=== PATIENT | male | born 1965 | race Caucasian/White ===

== ENCOUNTER → 2020-06-25 15:31 | Outpatient (BNVA) | payer SELFPAY | PROVIDERS: Visit Provider Emergency Medicine | DX: R10.9 Unspecified abdominal pain (principal); R11.0 Nausea | CPT/HCPCS: 80053; 81000; 83690; 85025 ==

== ENCOUNTER 2020-07-24 07:02 | Outpatient (CLI) | payer SELFPAY ==
--- NOTE | 2020-07-24 07:15 | US_ITS ---
WS: [id number] RIGHT UPPER QUADRANT ULTRASOUND HISTORY: R10.9 - Unspecified abdominal pain COMPARISON: None available. Liver: 17.3 cm in length. Moderately enlarged liver. Diffuse coarse echotexture. The entire liver is not imaged due to attenuation. No bile duct dilatation. Gallbladder: Normally distended gallbladder with no stones or wall thickening. CBD: 0.5 cm Pancreas: Not visualized. Right kidney: 12.6 cm in length. Normal size and echogenicity. No hydronephrosis or mass. Aorta and IVC: Poorly visualized. No ascites. US/US abdomen limited [id number] IMPRESSION: 1. Technically very limited evaluation of the RIGHT upper quadrant due to body habitus. 2. Moderate hepatomegaly and severe hepatic steatosis. 3. Negative gallbladder.
== END 2020-07-24 07:03 | disposition home or self-care (01) ==
LOC: US 07:04
PROVIDERS: Visit Provider Emergency Medicine
DX: R10.9 Unspecified abdominal pain (principal); R11.0 Nausea; R16.0 Hepatomegaly, not elsewhere classified; K76.0 Fatty (change of) liver, not elsewhere classified
CPT/HCPCS: 76705

== ENCOUNTER → 2021-11-17 14:14 | Outpatient (BNVA) | payer BC, MEDICAID, SELFPAY | PROVIDERS: Visit Provider Nurse Practitioner Family | DX: R10.11 Right upper quadrant pain (principal); R31.21 Asymptomatic microscopic hematuria; M54.50 Low back pain, unspecified | CPT/HCPCS: 80053; 81000 ==

== ENCOUNTER 2022-01-10 11:12 | Emergency (ER) | payer BC, MEDICAID, SELFPAY ==
--- NOTE | 2022-01-10 12:24 | USCV_ITS ---
Skip Mccray Age: 56 Gender: M : 1965 Exam Date: 01/10/2022 13:15 Ordering Phys: Dyllan Saeed MD Technologist: CT Exam Location: [facility]_ Indication: pain left PROCEDURES: Venous duplex imaging was performed in only the right lower extremity. On the right side, the common femoral, superficial femoral, profunda femoral, popliteal, posterior tibial, greater saphenous veins and the peroneal trunk were identified and interrogated in the standard fashion. These veins were found to be easily compressible with spontaneous blood flow. No evidence of insufficiency or thrombus noted. In addition, the posterior tibial and peroneal trunk were evaluated. . FINDINGS: normal us CONCLUSIONS No evidence of right lower extremity DVT. Willard Rosario MD (Electronically Signed) Final Date: 10 January 2022 14:12 S
[2022-01-10 13:09] VITALS: BP 163/108; PULSE 86; RESP 16; TEMP 36.2; O2SAT 98; BMI 47.1
[2022-01-10 14:21] VITALS: BP 162/124; PULSE 86; RESP 16; O2SAT 96
--- NOTE | 2022-01-10 14:50 | ED_ITS ---
HPI - Extremity Problem General: Chief complaint: Extremity Problem,Nontraumatic Stated complaint: leg/thigh pain Time Seen by Provider: 01/10/22 14:41 Source: patient Mode of arrival: ambulatory History of Present Illness: 56-year-old male presents emergency room with complaints of right thigh pain medial thigh pain extending into the perineum aching and burning pain. Has not had any swelling of his leg. He is concerned he may have a blood clot. He was seen yesterday in walk-in clinic and advised to follow-up with an ultrasound of his leg to rule out DVT. He has had problems with his back in the past he recently was doing some heavy lifting did not seem to bother him at the time but since then he has developed these issues. He has not had any chest pain or shortness of breath MD Complaint: extremity pain Onset (ago): day(s) Pain Consistency: constant Location: right and lower extremity Quality: sharp Radiation: none Relieving factors: nothing Exacerbating factors: nothing Associated symptoms: Deny arthralgias, chest pain, fever(s), myalgias, rash or short of breath Review of Systems Const: Denies: fever(s), chills, fatigue or malaise ENMT: Denies: throat pain, ear or mastoid pain, nasal discharge or nasal congestion Card: Denies: chest pain, palpitations, irregular heart rhythm or edema Resp: Denies: dyspnea, productive cough or non-productive cough GI: Denies: abdominal pain, nausea, vomiting, hematemesis, coffee ground emesis, diarrhea, constipation, bloating, hematochezia or melena : Denies: flank pain, dysuria, urinary frequency or urinary urgency Skin/Breast: Denies: rash PFSH ED PFSH: Medical History Chronic pain syndrome Nonalcoholic fatty liver disease Opioid dependence Social History Smoking and tobacco status: current every day smoker cigarettes and smokeless tobacco Second hand smoke exposure: No Alcohol intake: current Alcohol intake frequency: few times a week Desire information about alcohol rehabilitation?: No Desire information about substance/drug rehabilitation?: No Physical Exam Const: COMMON NORMALS: no acute distress GENERAL APPEARANCE: cooperative and comfortable ORIENTATION/CONSCIOUSNESS: Yes awake, Yes oriented to person, Yes oriented to place and Yes oriented to time HENMT: COMMON NORMALS: normocephalic, atraumatic and hearing grossly normal bilaterally HEAD & SCALP: normocephalic and atraumatic Resp: COMMON NORMALS: normal respiratory effort, No retractions, No use of accessory muscles and clear to auscultation bilaterally AUSCULTATION: clear to auscultation bilaterally Cardio: COMMON NORMALS: regular rate, regular rhythm and No murmurs present (Cardio) RATE: regular rate RHYTHM: regular rhythm Extremity: COMMON NORMALS: normal to inspection, capillary refill normal, no clubbing, cyanosis or edema, no calf tenderness and no pedal edema Neuro: SENSORIUM/ORIENTATION: Yes oriented to person, Yes oriented to place and Yes oriented to time DEEP TENDON REFLEXES: Right patellar reflex intensity grade: 1+ and Left patellar reflex intensity grade: 2+ OTHER: Mild weakness with dorsiflexion in the right foot plantar flexion 5/5. The left foot is 5 of 5 with plantar and dorsiflexion. Skin: COMMON NORMALS: no rashes or lesions noted GENERAL SKIN EXAM: no rashes or lesions noted Course Vital Signs: Vital signs: Vital Signs Temperature 97.2 F L 01/10/22 13:09 Pulse Rate 86 01/10/22 14:21 Respiratory Rate 16 01/10/22 14:21 Blood Pressure 162/124 01/10/22 14:21 Pulse Oximetry 96 01/10/22 14:21 Oxygen Delivery Me thod 01/10/22 14:21 MDM - Extremity (Nontraumatic) Medical Decision Making Neck the patient does have a lumbar nerve impingement likely at L2-3 level. Venous duplex was negative for DVT. Will discharge home on steroids muscle r elaxer and prednisone taper. Medical Records I reviewed the patient's medical records. Lab Data I reviewed the patient's lab results. Discharge Plan Discharge Patient Disposition: Home Clinical Impression: Lumbar nerve root impingement Condition: Stable Prescriptions: New pregabalin 75 mg capsule 75 mg PO BID Qty: 60 0RF tizanidine 4 mg tablet 4 mg PO Q6H PRN (Reason: muscle spasticity) Qty: 20 0RF Rx Instructions: do not exceed 3 doses per 24 hrs prednisone 20 mg tablet 20 mg PO TID Qty: 15 0RF Rx Instructions: 1 p.o. 3 times daily x3 days, 1 p.o. twice daily x2 days, 1 p.o. daily x2 days No Action hydrocodone-acetaminophen 5-325 mg tablet 1 tab PO Q4H PRN (Reason: pain) 3 Days Qty: 10 0RF Discharge Orders: Discharge ED (Routine); Ordered 01/10/22 Ordered By: Rey Grullon Patient Instructions: Opioid Safety, Pain Management Activity Restrictions/Additional Instructions: You were seen today for right leg pain. Based on your exam I suspect you have a L to III nerve root impingement. Follow-up with your primary care doctor. Use medications as above. Start prednisone taper tomorrow. Coding Level of Care Code ED Senior Field Service Engineer for Amie Barbosa
[2022-01-10 15:10] VITALS: BP 141/106; PULSE 88; RESP 16; TEMP 36.7; O2SAT 96
== END 2022-01-10 15:13 | disposition home or self-care (01) ==
PROVIDERS: Emergency Provider Family Medicine
DX: G54.4 Lumbosacral root disorders, not elsewhere classified (principal); F17.210 Nicotine dependence, cigarettes, uncomplicated
CPT/HCPCS: 93971; 99284

== ENCOUNTER 2022-01-17 06:58 | Outpatient (CLI) | payer BC, MEDICAID, SELFPAY ==
--- NOTE | 2022-01-17 07:15 | US_ITS ---
WS: [id number] Complete ABDOMINAL ULTRASOUND HISTORY: R10.11 - Right upper quadrant pain COMPARISON: 07/24/2020 Liver: 16.1 cm in length. Liver is mildly enlarged. Mild coarse echotexture. Difficult to evaluate th e entire liver due to hepatic steatosis and body habitus. No bile duct dilatation or mass identified. Portal Vein: Normal hepatopetal flow with monophasic waveform. Gallbladder: Normally distended with no gallstones, wall thickening or pericholecystic fluid. Gallbladder wall thickness: 0.4 cm. Pancreas: Poorly visualized due to body habitus. CBD: 0.5 cm. Right kidney: 13.2 cm x 7.5 cm x 7.0 cm. No mass, cortical thickening or hydronephrosis. There are t iny nonobstructing calcifications. Left kidney: 11.6 cm x 5.5 cm x 6.1 cm. No mass, cortical thickening or hydronephrosis. Spleen: Normal size and echogenicity. Abdominal aorta and IVC are within normal limits. No ascites. US/US abdomen complete* [id number] IMPRESSION: 1. Overall quality is limited by body habitus. 2. Normal gallbladder. 3. Mild hepatomegaly and changes of hepatic steatosis. Not significantly curran ed since 07/24/2020. 4. No renal obstruction or solid mass.
== END 2022-01-17 06:59 | disposition home or self-care (01) ==
LOC: RAD 06:59
PROVIDERS: Visit Provider Nurse Practitioner Family
DX: R10.11 Right upper quadrant pain (principal); R16.0 Hepatomegaly, not elsewhere classified
CPT/HCPCS: 76700

== ENCOUNTER → 2022-02-10 16:03 | Outpatient (BNVA) | payer BC, MEDICAID, SELFPAY | PROVIDERS: PCP Nurse Practitioner Family; Visit Provider Nurse Practitioner Family | DX: I10 Essential (primary) hypertension (principal) | CPT/HCPCS: 85025 ==

== ENCOUNTER → 2022-02-16 10:15 | Outpatient (BNVA) | payer BC, MEDICAID, SELFPAY | PROVIDERS: PCP Nurse Practitioner Family; Visit Provider Nurse Practitioner Family | DX: I10 Essential (primary) hypertension (principal) | CPT/HCPCS: 85025 ==

== ENCOUNTER 2022-08-22 11:00 | Outpatient (CLI) | payer BC, MEDICAID, SELFPAY | END 2022-08-22 11:01 | disposition home or self-care (01) | LOC: SLEEP 08-23 12:16 | PROVIDERS: PCP Nurse Practitioner Family; Visit Provider Anesthesiology Pain Medicine | DX: G47.33 Obstructive sleep apnea (adult) (pediatric) (principal); G47.36 Sleep related hypoventilation in conditions classified elsewhere | CPT/HCPCS: G0399 ==

== ENCOUNTER → 2023-01-10 14:39 | Outpatient (BNVA) | payer BC, MEDICAID, SELFPAY | PROVIDERS: PCP Family Medicine; Visit Provider Family Medicine | DX: I10 Essential (primary) hypertension (principal); Z13.220 Encounter for screening for lipoid disorders; Z13.6 Encounter for screening for cardiovascular disorders; R53.83 Other fatigue | CPT/HCPCS: 80053; 80061; 82607; 84403; 84443; 85025 ==

== ENCOUNTER → 2023-01-26 08:16 | Outpatient (BNVA) | payer BC, MEDICAID, SELFPAY | PROVIDERS: PCP Family Medicine; Referring Provider Family Medicine; Visit Provider Family Medicine | DX: E34.9 Endocrine disorder, unspecified (principal) | CPT/HCPCS: 84402; 84403 ==

== ENCOUNTER → 2023-02-14 09:45 | Outpatient (BNVA) | payer BC, MEDICAID, SELFPAY | PROVIDERS: PCP Family Medicine; Referring Provider Family Medicine; Visit Provider Family Medicine | DX: E34.9 Endocrine disorder, unspecified (principal); E29.1 Testicular hypofunction | CPT/HCPCS: 84402; 84403 ==

== ENCOUNTER → 2023-07-27 10:54 | Outpatient (BNVA) | payer BC, MEDICAID, SELFPAY | PROVIDERS: PCP Family Medicine; Visit Provider Family Medicine | DX: I10 Essential (primary) hypertension (principal); E34.9 Endocrine disorder, unspecified | CPT/HCPCS: 80053; 82977; 83690; 84402; 84403 ==

== ENCOUNTER 2023-08-22 15:12 | Outpatient (CLI) | payer BC, MEDICAID, SELFPAY ==
--- NOTE | 2023-08-22 15:30 | CT_ITS ---
WS: [id number] CT ABDOMEN WITH CONTRAST HISTORY: R10.9 - Unspecified abdominal pain Contiguous single phase 5 mm axial imaging performed to the abdomen. Oral contrast has been provided. Coronal and sagittal reformats are submitted. All CT scans at [facility] use at least one of these dose optimization techniques: automated exposure control; mA and/or kV adjustment per patient size (includes targeted exams where dose is matched to clinical indication); or iterative reconstruct ion. IV CONTRAST: Omnipaque 350; 100 mL IV. Oral contrast: No DLP: 922.89 mGy.cm COMPARISON: Ultrasound 01/17/2022 Lower thorax: Breathing motion artifact at the lung bases. Heart is normal size. No hiatal hernia. Liver/biliary system: Diffuse hepatic steatosis. No mass. No intrahepatic dilatation. Limited enhance ment of the portal vein but no thrombus identified. Gallbladder: Normal. No gallstones or wall thickening. No pericholecystic fluid. Pancreas: Normal size pancreas and pancreatic duct. No adjacent inflammation. Spleen: Normal size spleen. No mass or infarct. Adrenal glands: Normal. Right kidney: Normal. Left kidney: Normal. Aorta: Minimal atherosclerosis. No aneurysm. Limited opacification of the mesenteric arteries but no thrombus or occlusion identified. Lymphadenopathy: None. Free fluid: None. GI tract: Stomach is distended with fluid. No obstruction. No mass. Visualized small bowel and colon are negative for acute pathology. Abdominal wall: Small ventral abdominal wall hernia. Visualized osseous structures: Mild degenerative scoliosis lumbar spine. Vacuum disc phenomenon in th e lower lumbar spine. No fractures. Healed rib fracture in the posterior RIGHT 10th rib. CT/CT abdomen w con* [id number] IMPRESSION: 1. No acute abdominal abnormality is identified. 2. Negative gallbladder. 3. No bile duct dilatation. 4. No GI tract obstruction or inflammation identified within the included port ions of the abdomen CT. 5. Mild atherosclerosis aorta.
== END 2023-08-22 15:13 | disposition home or self-care (01) ==
LOC: RAD 15:13
PROVIDERS: PCP Family Medicine; Visit Provider Family Medicine
DX: R10.9 Unspecified abdominal pain (principal); K76.0 Fatty (change of) liver, not elsewhere classified; K46.9 Unspecified abdominal hernia without obstruction or gangrene
CPT/HCPCS: 74160; Q9967

== ENCOUNTER → 2024-05-15 10:53 | Outpatient (BNVA) | payer BC, MEDICAID, SELFPAY | PROVIDERS: PCP Family Medicine; Visit Provider Family Medicine | DX: I10 Essential (primary) hypertension (principal); E34.9 Endocrine disorder, unspecified; E29.1 Testicular hypofunction | CPT/HCPCS: 80053; 80061; 84402; 84403 ==

== ENCOUNTER 2024-06-04 07:10 | Emergency (ER) | payer BC, MEDICAID, SELFPAY ==
[2024-06-04 07:12] VITALS: BP 177/84; PULSE 83; RESP 20; TEMP 36.6; O2SAT 97
--- NOTE | 2024-06-04 07:26 | ED_ITS ---
HPI - Ear Problem General: Chief complaint: Ear Stated complaint: stroke like symptoms Time Seen by Provider: 06/04/24 07:26 History of Present Illness: 58-year-old male presents emergency room complaining of fullness in his right ear with some drainage. Has tried some [id number] hydroperoxide in the ear without significant relief he has some muffled hearing as well some mild otalgia. No fever sweats or chills he has not had any trauma to that ear no bloody discharge Associated symptoms: Denies fever(s) Related Data Home Medications ?Medication ?Instructions ?Recorded ?Confirmed hydrocodone 10 mg-acetaminophen 1 tab PO TID PRN pain 11/01/22 06/04/24 325 mg tablet Previous Rx's ?Medication ?Instructions ?Recorded ibuprofen 800 mg tablet 800 mg PO Q8H #60 tabs 10/29 losartan 25 mg tablet 25 mg PO DAILY 90 days #90 t abs 05/15/24 testosterone 1 pump topical DAILY #75 gra ms 05/15/24 amoxicillin 875 mg-potassium 1 tab PO BID #20 tabs 10/21 clavulanate 125 mg tablet ciprofloxacin 0.3 %-dexamethasone 4 drp otic (ear) BID 7 days #7.5 mL 06/04/24 0.1 % ear drops,suspension Allergies Allergy/AdvReac Type Severity Reaction Status Date / Time Sulfa (Sulfonamide Allergy Unknown Verified 05/15/24 10:30 Antibiotics) Review of Systems Const: Denies: fever(s) or chills Card: Denies: chest pain Resp: Denies: dyspnea [facility] ED PFSH: Medical History Degenerative disc disease Opioid dependence Chronic pain syndrome Nonalcoholic fatty liver disease Family History Other Adopted Denies family history of Bleeding disorder Social History Smoking and tobacco/nicotine status: current some day tobacco/nicotine user cigarettes and smokeless tobacco Second hand smoke exposure: No Alcohol intake: current Alcohol intake frequency: holidays/special occasions only Alcohol type: beer Substance/Drug Use: never Physical Exam Const: COMMON NORMALS: no acute distress GENERAL APPEARANCE: cooperative and comfortable ORIENTATION/CONSCIOUSNESS: Yes awake, Yes oriented to person, Yes oriented to place and Yes oriented to time HENMT: COMMON NORMALS: normocephalic, atraumatic, hearing grossly normal bilaterally, external ears normal and Normal nasal mucous membranes and turbinates present HEAD & SCALP: normocephalic and atraumatic NOSE: Normal nasal mucous membranes and turbinates present EXTERNAL EAR: Yes external ears normal EXTERNAL AUDITORY CANAL: Abnormal EAC present EAC laterality: right Details: erythema, edema and EAC tenderness TYMPANIC MEMBRANE: TM normal on the left and TM abnormal TM laterality: right Details: bulging, erythematous and fluid behind TM Resp: COMMON NORMALS: normal respiratory effort, No retractions, No use of accessory muscles and clear to auscultation bilaterally AUSCULTATION: clear to auscultation bilaterally Cardio: COMMON NORMALS: regular rate, regular rhythm and No murmurs present (Cardio) RATE: regular rate RHYTHM: regular rhythm Neuro: SENSORIUM/ORIENTATION: Yes oriented to person, Yes oriented to place and Yes oriented to time Skin: COMMON NORMALS: no rashes or lesions noted GENERAL SKIN EXAM: no rashes or lesions noted Course Vital Signs: Vital signs: Vital Signs Temperature 97.8 F 06/04/24 07:12 Pulse Rate 78 06/04/24 07:49 Respiratory Rate 20 H 06/04/24 07:12 Blood Pressure 170/84 06/04/24 07:49 Pulse Oximetry 98 06/04/24 07:49 MDM - Ear Medical Decision Making Reviewed findings from exam with patient we will start him on Ciprodex drops as well as amoxicillin 875 twice daily for 10 days follow-up with primary care return if he has further problems. If he continues to have muffled hearing he should follow-up with his primary care doctor. No radiology studies performed this visit Discharge Plan Discharge Patient Disposition: Home Clinical Impression: Otitis externa, Otitis media Condition: Stable Prescriptions: New amoxicillin-pot clavulanate 875-125 mg tablet 1 tab PO BID Qty: 20 0RF ciprofloxacin-dexamethasone 0.3-0.1 % drops,suspension 4 drp otic (ear) BID 7 Days Qty: 7.5 0RF No Action hydrocodone-acetaminophen 10-325 mg tablet 1 tab PO TID PRN (Reason: pain) ibuprofen 800 mg tablet 800 mg PO Q8H Qty: 60 0RF losartan 25 mg tablet 25 mg PO DAILY 90 Days Qty: 90 3RF testosterone 20.25 mg/1.25 gram (1.62 %) gel in metered-dose pump 1 pump topical DAILY Qty: 75 3RF Rx Instructions: apply 1 pump amount over max area of ONE upper arm and shoulder Discharge Orders: Discharge ED (Routine); Ordered 06/04/24 Ordered By: Rey Grullon Referrals: Lyubov Diaz MD [Primary Care Provider] - Discharge Diet: Usual diet Discharge Activity: Resume usual activity Patient Instructions: Otitis Externa - Adult, Otitis Media - Adult, Opioid Safety, Pain Management Activity Restrictions/Additional Instructions: Thank you for choosing [facility] for your healthcare needs today. It is very important that you follow up as instructed or that you return to the Emergency Department should you have concerns or if your condition changes or worsens in any way. Print Language: Gibraltarian Coding Level of Care Code ED Sharepoint Administrator for Amie Barbosa
[2024-06-04 07:49] VITALS: BP 170/84; PULSE 78; O2SAT 98
== END 2024-06-04 07:51 | disposition home or self-care (01) ==
PROVIDERS: Emergency Provider Family Medicine; PCP Family Medicine
DX: H60.91 Unspecified otitis externa, right ear (principal); H66.91 Otitis media, unspecified, right ear; F17.210 Nicotine dependence, cigarettes, uncomplicated; F17.220 Nicotine dependence, chewing tobacco, uncomplicated
CPT/HCPCS: 99283

== ENCOUNTER 2024-08-18 14:11 | Emergency (ER) | payer BC, MEDICAID, SELFPAY ==
[2024-08-18 14:26] VITALS: BP 150/84; PULSE 80; RESP 16; TEMP 36.4; O2SAT 95; BMI 48.6
--- NOTE | 2024-08-18 15:06 | XRR_ITS ---
PROCEDURE INFORMATION: Exam: XR Right Humerus Exam date and time: 08/18/2024 3:28 PM Age: 59 years old Clinical indication: Right; RT upper arm/shoulder pain after lifting injury; PT was lifitng an air conditioner when he had sudden extreme pain and felt a pop; Now has limited rom and tight bicep ball shaped formation that is mobile under skin TECHNIQUE: Imaging protocol: Radiologic exam of the right humerus. Views: 2 or more views. COMPARISON: No relevant prior studies available. FINDINGS: Bones/joints: No acute fracture or dislocation. Mineralization is normal. Mild acromioclavicular joint arthropathy. Soft tissues: Unremarkable. XR/[place] [id number] IMPRESSION: No acute fracture or dislocation.
--- NOTE | 2024-08-18 15:14 | ED_ITS ---
HPI - Extremity Problem General: Chief complaint: Extremity Injury, Upper Stated complaint: R arm pain Time Seen by Provider: 08/18/24 15:09 History of Present Illness: 59-year-old male reports that he was lif ting an air conditioner when he got about [facility] he felt a tearing sensation in his arm and now his he has a bulge in his upper arm where his bicep is at. Related Data Home Medications ?Medication ?Instructions ?Recorded ?Confirmed hydrocodone 10 mg-acetaminophen 1 tab PO TID PRN pain 11/01/22 06/06/24 325 mg tablet Previous Rx's ?Medication ?Instructions ?Recorded ibuprofen 800 mg tablet 800 mg PO Q8H #60 tabs 10/29 losartan 25 mg tablet 25 mg PO DAILY 90 days #90 t abs 05/15/24 testosterone 1 pump topical DAILY #75 gra ms 05/15/24 ofloxacin 0.3 % eye drops 1 drp ophthalmic (eye) TID # 5 mL 07/04/24 Allergies Allergy/AdvReac Type Severity Reaction Status Date / Time Sulfa (Sulfonamide Allergy Unknown Verified 07/04/24 15:30 Antibiotics) Review of Systems Musc: Reports: other (Please see HPI) PFSH ED PFSH: Medical History Degenerative disc disease Opioid dependence Chronic pain syndrome Nonalcoholic fatty liver disease Family History Other Adopted Denies family history of Bleeding disorder Social History Smoking and tobacco/nicotine status: never used tobacco/nicotine Second hand smoke exposure: No Alcohol intake: current Alcohol intake frequency: holidays/special occasions only Alcohol type: beer Substance/Drug Use: never Physical Exam Const: COMMON NORMALS: no acute distress, patient oriented x3 and alert Resp: COMMON NORMALS: normal respiratory effort and clear to auscultation bilaterally AUSCULTATION: clear to auscultation bilaterally Cardio: COMMON NORMALS: regular rate and regular rhythm RATE: regular rate RHYTHM: regular rhythm GI: COMMON NORMALS: Soft to palpation and non-tender PALPATION: Yes Soft to palpation Extremity: NARRATIVE EXTREMITY EXAM: Right upper arm with mid upper arm bulge consistent with distal bicep tendon rupture Neuro: COMMON NORMALS: patient oriented x3 SENSORIUM/ORIENTATION: Yes alert Psych: COMMON NORMALS: mental status grossly normal, Normal thought process present and cooperative THOUGHT PROCESS: Normal thought process present Skin: COMMON NORMALS: no rashes or lesions noted and turgor normal GENERAL SKIN EXAM: no rashes or lesions noted and turgor normal Course Vital Signs: Vital signs: Vital Signs Temperature 97.5 F L 08/18/24 14:26 Pulse Rate 78 08/18/24 16:34 Respiratory Rate 16 08/18/24 14:26 Blood Pressure 126/81 08/18/24 16:34 Pulse Oximetry 99 08/18/24 16:34 Oxygen Delivery Me thod Room Air 08/18/24 14:26 MDM - Extremity (Nontraumatic) Medical Decision Making Patient x-rays were reviewed and shows no acute findings. Patient's physical exam is consistent with a likely distal bicep tendinitis rupture. Patient will be referred to Ortho for definitive evaluation and treatment. Patient was placed in a sling prior to discharge. Lab Data Radiology Impressions Humerus X-Ray 08/18/24 15:06 IMPRESSION: No acute fracture or dislocation. XR interpretation done by ED provider, pending radiology final review ED provider radiology interpretation(s): No acute finding noted Discharge Plan Discharge Patient Disposition: Home Clinical Impression: Biceps tendon rupture Condition: Stable Prescriptions: No Action hydrocodone-acetaminophen 10-325 mg tablet 1 tab PO TID PRN (Reason: pain) ibuprofen 800 mg tablet 800 mg PO Q8H Qty: 60 0RF losartan 25 mg tablet 25 mg PO DAILY 90 Days Qty: 90 3RF testosterone 20.25 mg/1.25 gram (1.62 %) gel in metered-dose pump 1 pump topical DAILY Qty: 75 3RF Rx Instructions: apply 1 pump amount over max area of ONE upper arm and shoulder ofloxacin 0.3 % drops 1 drp ophthalmic (eye) TID Qty: 5 0RF Discharge Orders: Discharge ED (Routine); Ordered 08/18/24 Ordered By: Jayson Salas Referrals: Lyubov Diaz MD [Primary Care Provider, Family Practice] Discharge Diet: Usual diet Discharge Activity: Increase activity as tolerated Patient Instructions: Biceps Tendon Rupture, Opioid Safety, Pain Management Activity Restrictions/Additional Instructions: Your symptom is concerning for bicep tendon rupture. I have placed that referral for you to medical front desk specialist. Please limit lifting and wear sling for support. You may use Tylenol and ibuprofen for discomfort as needed. Ice to affected area as needed Print Language: Thai Coding Level of Care Code ED Rough Rice Grader for Amie Barbosa
[2024-08-18] MEDS: ketorolac 30 mg/mL INJ 15 MG IM (15:30)
[2024-08-18 16:34] VITALS: BP 126/81; PULSE 78; O2SAT 99
--- NOTE | 2024-08-19 09:24 | DCPLANNER ---
Message sent to Ortho for follow up-Patient x-rays were reviewed and shows no acute findings. Patient's physical exam is consistent with a likely distal bicep tendinitis rupture. Patient will be referred to Ortho for definitive evaluation and treatment. Patient was placed in a sling prior to discharge.
== END 2024-08-18 16:35 | disposition home or self-care (01) ==
PROVIDERS: Emergency Provider Student in an Organized Health Care Education/Training Program; PCP Family Medicine
DX: S46.211A Strain of muscle, fascia and tendon of other parts of biceps, right arm, initial encounter (principal); X58.XXXA Exposure to other specified factors, initial encounter
CPT/HCPCS: 73060; 96372; 99284; A4565; J1885

== ENCOUNTER → 2024-08-20 14:33 | Outpatient (BNVA) | payer BC, MEDICAID, SELFPAY | PROVIDERS: PCP Family Medicine; Visit Provider Orthopaedic Surgery | DX: S46.211A Strain of muscle, fascia and tendon of other parts of biceps, right arm, initial encounter (principal); X58.XXXA Exposure to other specified factors, initial encounter | CPT/HCPCS: 73060 ==

== ENCOUNTER 2024-08-22 14:06 | Outpatient (CLI) | payer BC, MEDICAID, SELFPAY ==
--- NOTE | 2024-08-22 14:30 | MR_ITS ---
WS: [id number] EXAMINATION: MR elbow RT wo con* [id number] ORDER DATE: 08/22/2024 2:12 PM COMPARISON: None. HISTORY: S46.219A - Strain of muscle, fascia and tendon of other p... CONTRAST: None.None. TECHNIQUE: Axial T1, axial T2 fat sat, coronal T1, coronal proton density fat sat, coronal STIR, sagittal proton density fat sat, and axial fat sat 3D performed. FINDINGS: High-grade complete tear of the distal biceps tendon. Complete tear from the insertion at the radial tuberosity. Biceps tendon is retracted above the level of the elbow joint. Associated fluid and edema along the biceps tendon sheath. Associated hematoma involving the biceps brachii muscle and myotendinous junction. No visualized radial avulsion fractures. No residual visualized intact tendon. Normal bone marrow signal in the radial head. Annular ligament appears intact. Normal bone marrow signal in the olecranon and coronoid process. Normal bone marrow signal in the distal humerus. MR/MR elbow RT wo con* [id number] IMPRESSION: 1. High-grade complete tear of the biceps tendon from the radial tuberosity in sertion. Biceps tendon is retracted above the level of the elbow joint. 2. No residual intact tendon. 3. Fluid and edema along the biceps tendon sheath with hematoma and edema visu alized in the biceps brachii muscle and myotendinous junction
== END 2024-08-22 14:07 | disposition home or self-care (01) ==
LOC: RAD 14:07
PROVIDERS: PCP Family Medicine; Visit Provider Orthopaedic Surgery
DX: S46.211A Strain of muscle, fascia and tendon of other parts of biceps, right arm, initial encounter (principal); X58.XXXA Exposure to other specified factors, initial encounter
CPT/HCPCS: 73221

== ENCOUNTER → 2024-08-23 10:25 | Outpatient (BNVA) | payer BC, MEDICAID, SELFPAY | PROVIDERS: PCP Family Medicine; Visit Provider Orthopaedic Surgery | DX: S46.211A Strain of muscle, fascia and tendon of other parts of biceps, right arm, initial encounter (principal); Z01.818 Encounter for other preprocedural examination; X58.XXXA Exposure to other specified factors, initial encounter | CPT/HCPCS: 36415; 80053; 81001; 83036; 85025 ==

== ENCOUNTER 2024-08-26 07:57 | Day surgery (SDC) | payer BC, MEDICAID, SELFPAY ==
[2024-08-26] VITALS (20 sets, daily range): BP systolic 94–163; BP diastolic 66–99; PULSE 70–93; RESP 16–20; TEMP 36.1–36.4; O2SAT 90–98; BMI 48.6
[2024-08-26] MEDS: sodium chloride 0.9% 1,000 ML 30 ML IV (08:40)
--- NOTE | 2024-08-26 09:34 | W.PM.OPSUD ---
Surgery/Procedure H&P Update DATE OF PROCEDURE: August 26, 2024 DATE H&P PERFORMED: 08/23/24 H&P UPDATE INFORMATION: I have reviewed H&P completed within last 30 days, I have examined patient prior to procedure and No changes to prior documentation PREOP DIAGNOSIS: Right bicep tear distally PLANNED PROCEDURE: Operation Date: 08/26/24 09:25 Proposed Procedures p Bicep Tenodesis Tendon Repair Bicep(Right) - Rm Alejandra DO
--- NOTE | 2024-08-26 09:35 | ANES.PREANE2 ---
Pre-Anesthetic Assessment Height/Weight: Height 5 ft 8 in Weight 320 lb Temp Pulse Resp BP Pulse Ox O2 Del Method 97 F L 86 18 158/92 96 Room Air 08/26/24 08:26 08/26/24 08:26 08/26/24 08:26 08/26/24 08:26 08/26/24 08:26 08/26/24 08:26 Preop Diagnosis: Right bicep tear distally Operation Date: 08/26/24 09:25 Proposed Procedures p Bicep Tenodesis Tendon Repair Bicep(Right) - Rm Alejandra, DO Was Beta Augustine taken within 24 hours: N/A Was Clonidine taken within 24 hours: N/A Last intake: Intake Last Liquid Date 08/25/24 Last Liquid Time 22:00 Last Solid Date 08/25/24 Last Solid Time 21:00 Social Tobacco and No tobacco Exam alert, oriented x 3 and regular rate & rhythm Airway Submandibular: within normal limits Mallampati: Class III Dentition: full Anesthetic Plan ASA status: 3 Anesthesia: General and Regional (specify below) Other: No prior issues with anesthesia NPO since yesterday evening History of JOHN, no treatment Chronic smoker Chronic pain, on chronic [place] 3?4 daily Denies any hypertension, preop BP 158/92 Patient states that he is able to walk 1-2 blocks at a time but does note mild shortness of breath No home oxygen Plan for preop nerve block with general anesthesia Medications/Allergies Home Medications ?Medication ?Instructions ?Recorded ?Confirmed ?Last Taken ?Type hydrocodone 10 mg-acetaminophen 1 tab PO TID PRN pain 11/01/22 08/26/24 08/25/24 History 325 mg tablet testosterone 1 pump topical DAILY #75 grams 05/15/24 08/26/24 08/26/24 Rx cholecalciferol (vitamin D3) 125 125 mcg PO DAILY 08/26/24 08/26/24 08/25/24 History mcg (5,000 unit) tablet (Vitamin D3) coenzyme Q10 400 mg capsule (Co 400 mg PO DAILY 08/26/24 08/26/24 08/25/24 History Q-10) garlic 1,000 mg capsule 1,000 mg PO DAILY 08/26/24 08/26/24 08/25/24 History soybean, fermented 50 mg capsule 50 mg PO DAILY 08/26/24 08/26/24 08/25/24 History (Nattokinase) Allergies Allergy/AdvReac Type Severity Reaction Status Date / Time Sulfa (Sulfonamide Allergy Severe anaphylacti Verified 08/26/24 08:18 Antibiotics) c Current Medications Generic Name Dose Route Start Last Admin Trade Name Cornelq PRN Reason Stop Dose Admin Sodium Chloride 1,000 mls @ 30 mls/hr 08/26/24 08:00 08/26/24 08:40 Sodium Chloride 0.9% IV 08/27/24 07:59 30 mls/hr .Q24H JOSE Administration PFSH Anesthesia Medical History Degenerative disc disease Opioid dependence Chronic pain syndrome Nonalcoholic fatty liver disease Family History Other Adopted Denies family history of Bleeding disorder Social History Smoking and tobacco/nicotine status: current every day tobacco/nicotine user cigarettes and smokeless tobacco Second hand smoke exposure: No Alcohol intake: current Alcohol intake frequency: holidays/special occasions only Alcohol type: beer Substance/Drug Use: never
--- NOTE | 2024-08-26 09:39 | ANES.PROC ---
Anesthesia Procedures Procedure/Date: 08/26/24 Nerve Block ^: Nerve Block 1: Main Anesthesia: other Time Out Performed: Yes Consent: requested by attending/covering physician and from patient Nerve block location: interscalene Anesthesia monitors applied: pulse oximetry, EKG, BP cuff and oxygen Nerve block position: supine Anesthetic Used: ropivicaine 0.5% Amount of anesthesia used (mL): 30 Ultrasound used to: recognize landmarks Nerve Stimulator Used?: Yes Interscalene/Femoral BLK: other needle (pjunk 4inch) Injection: neg aspiration of heme Patient Tolerated Procedure: well Complications: none Additional Comments: decadron 4mg added to block
[2024-08-26] MEDS: ceFAZolin 3,000 MG in sodium chloride 0.9% (plus) 100 ML 200 MG IV (09:42)
[2024-08-26] MEDS: vancomycin 1,000 MG SDV 1000 MG XX (10:45)
--- NOTE | 2024-08-26 10:50 | XR_ITS ---
WS: [id number] XR elbow RT 2V [id number] REASON FOR EXAM: OR, bicep tendesis FINDINGS: Small soft tissue anchor overlying the margin of the biceps tendon on the radius. XR/XR elbow RT 2V [id number] IMPRESSION: Biceps tendon repair as above.
--- NOTE | 2024-08-26 11:03 | PM.OP ---
Operative Report Date of procedure: August 26, 2024 Pre-op diagnosis: Right distal bicep tear Post-op diagnosis: same Procedure done: Repair of right distal bicep Surgeon: Rm Alejandra DO Estimated blood loss (mL): 25 Procedure: Repair of right distal bicep Patient was brought to the operative suite after undergoing anesthesia was placed in the supine position. All areas impingement were well-padded. Patient was prepped and draped normal sterile fashion. Skin incision was made over the volar arm. The bicep tendon was identified. The edges were trimmed. A whipstitch was then passed through the bicep tendon. Next dissection was made down to the radial tuberosity. A guidepin was inserted first. This was then overreamed with a 8 mm reamer. On the near cortex. The suture from the whipstitch to the bicep tendon were passed through a button. The button was then passed through the radial tuberosity. And then using the tension of the sutures the bicep tendon was then brought down into the tuberosity hole. A suture was then passed through the bicep tendon and locked into position. And then a interference screw was then placed into the hole where the bicep tendon was passed. Range of motion patient had full range of motion. Wounds were then irrigated closed with Vicryl and Monocryl suture. Sterile dressings were applied patient was placed in a posterior splint and transferred to the PACU in stable condition.
[2024-08-26] MEDS: fentaNYL 50 mcg/mL INJ 2mL IVP ×2 (11:34→11:39)
[2024-08-26] MEDS: HYDROmorphone 1 mg/mL INJ 1ml 0.5 MG IVP (11:51)
[2024-08-26] MEDS: midazolam 1 mg/mL INJ 2 mL 2 MG IVP (12:00)
--- NOTE | 2024-08-26 13:45 | ANE.PACU2 ---
Inpatient post-anesthesia follow up: Airway intact: Yes Vital signs: Temperature 97.6 F Pulse Rate 77 Respiratory Rate 18 Blood Pressure 149/73 Pulse Oximetry 94 Oxygen Delivery Me thod Room Air Oxygen Flow Rate 2 Fraction of Inspir ed Oxygen Hydration adequate: Yes Nausea and vomiting: No Pain level: 2 Mental status: Baseline
== END 2024-08-26 13:45 | disposition home or self-care (01) ==
PROVIDERS: PCP Family Medicine; Visit Provider Orthopaedic Surgery
PROC: (CPT 23430; principal; 2024-08-26 09:15)
DX: S46.221A Laceration of muscle, fascia and tendon of other parts of biceps, right arm, initial encounter (principal); X58.XXXA Exposure to other specified factors, initial encounter; G47.33 Obstructive sleep apnea (adult) (pediatric); F17.210 Nicotine dependence, cigarettes, uncomplicated; F17.220 Nicotine dependence, chewing tobacco, uncomplicated
CPT/HCPCS: 24342; 73070; 76000; C1713; J0330; J0690; J1100; J1171; J2250; J2405; J2704; J3010; J3370; J3490; J7030; J9999

== ENCOUNTER 2024-09-08 16:08 | Inpatient (IN) | payer BC, SELFPAY ==
[2024-09-08] VITALS (9 sets, daily range): BP systolic 101–148; BP diastolic 56–86; PULSE 89–104; RESP 16–19; TEMP 37.2; O2SAT 94–98; BMI 48.6
--- OUTSIDE RECORDS SUMMARY | 2024-09-08 16:11 | XMS_ITS | Clinical Summary ---
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
--- OUTSIDE RECORDS SUMMARY | 2024-09-08 16:11 | XMS_ITS | Patient Health Record ---
Author Organization [facility] Address [address] [place], [place] [id number] Care Team Providers Care Interpreter Name Role Phone Lyubov Diaz MD Primary Care Provider Unavail able Mario FU, Phill Unavailable [phone] Rojelio PASTEURIZER-C, Agustina Unavailable Unavailable Nan Lyle Unavailable [phone] Allergies Allergen (clinical drug ingredient) Drug/Non Drug Allergy documented on EMR Reaction Allergy Type Onset Date Status Bee venom bee venom (uncoded) Unknown Allergy Active sulfa (uncoded) Unknown Allergy Acti ve Reason For Referral No Information Medications Medication SIG (Take, Route, Frequency, Duration) Notes Start Date End Date Status acetaminophen-hydrocod one 325 mg-10 mg 1 tab orally Q4-6H prn pain (max 3/day; hold within 4H of planned sleep) for 28 days Do not fill prior to 07/23/24. ICD-10: G89.29 06/05/2024 Active acetaminophen-hydrocod one 325 mg-10 mg 1 tab orally Q4-6H prn pain (max 3/day; hold within 4H of planned sleep) for 28 days Do not fill prior to 06/25/24. ICD-10: G89.29 06/05/2024 Active Narcan 4 mg/0.1 mL as directed intranasally once 05/12/2022 Active testosterone 25 mg/2.5 g (1%) 1 PKT(S) transdermally once a day (in the morning) for 30 day(s) Active acetaminophen-hydrocod one 325 mg-10 mg 1 tab orally Q4-6H prn pain (max 3/day; hold within 4H of planned sleep) for 28 days Do not fill prior to 08/20/24. ICD-10: G89.29 06/05/2024 Active ibuprofen 800 mg 1 tab po orally prn pain Active losartan 25 mg 1 tab(s) orally once a day for 30 day(s) 04/05/2023 Active Social History Tobacco Use: Social History Observation Description Date Details (start date - stop date) Current Smoker NA - NA Tobacco use: Question Answer Notes : current smoker Are you interested in quitting? Ready to quit How many cigarettes a day do you smoke? 5 or les s How often do you smoke cigarettes? some days, bu t not every day How soon after you wake up d o you smoke your first cigarette? after 60 min When did you start smoking? 1987 AUDIT-C (Standard) Question Answer Notes Did you have a drink containing alcohol in the p ast year? No Points 0 Interpretation Negative Problems Problem Type SNOMED Code ICD Code Onset Dates Problem Status W/U Status Risk Notes Problem Solitary sacroiliitis (675023451) Sacroiliitis, not elsewhere classified (M46.1) Active confirmed Problem Lumbosacral spondylosis without myelopathy (60177491) Spondylosis without myelopathy or radiculopathy, lumbar region (M47.816) Active confirmed Problem High risk drug monitoring status (367685160) assisted (current) use of opiate analgesic (Z79.891) Active confirmed Problem Hypersomnia (74696571) Hypersomnia, unspecified (G47.10) Active confirmed Problem Obstructive sleep apnea syndrome (disorder) (79393838) Obstructive sleep apnea (adult) (pediatric) (G47.33) Active confirmed Problem Sleep disorder (97949867) Other sleep disorders (G47.8) Active confirmed Problem Chronic pain (88761061) Other chronic pain (G89.29) Active confirmed Problem Thoracic spondylosis without myelopathy (635824553) Spondylosis without myelopathy or radiculopathy, thoracic region (M47.814) Active confirmed Problem Degeneration of lumbar intervertebral disc (30482345) Other intervertebral disc degeneration, lumbar region (M51.36) Active confirmed Problem Pain in thoracic spine (283624975) Pain in thoracic spine (M54.6) Active confirmed Problem Long-term current use of drug therapy (790732389) Other mcc (current) drug therapy (Z79.899) Active confirmed Problem Spinal stenosis of lumbar region (50246434) Spinal stenosis, lumbar region without neurogenic claudication (M48.061) Active confirmed Problem Pain in lumbar spine (706542347) Vertebrogenic low back pain (M54.51) Active confirmed Vital Signs Temperature 97.3 degrees Fahrenheit 06/05/2024 Oximetry 97 % 06/05/2024 Blood pressure diastolic 75 mm Hg 06/05/2024 Height 68.5 in 06/05/2024 Blood pressure systolic 121 mm Hg 06/05/2024 Weight 320 lbs 06/05/2024 BMI 47.94 kg/m2 06/05/2024 Encounters Encounter Location Date Provider [facility] [address] [place], [place] [id number] 10/11/2023 Nan Feliciano Vertebrogenic low ba ck pain M54.51 ; Other chronic pain G89.29 and Obstructive sleep apnea (adult) (pediatric) G47.33 [facility] [address] [place], [place] [id number] 12/14/2023 Phill Huangbebe Vertebrogenic low ba ck pain M54.51 ; Other chronic pain G89.29 and Obstructive sleep apnea (adult) (pediatric) G47.33 [facility] [address] [place], [place] [id number] 02/07/2024 Phill Huangbebe Vertebrogenic low ba ck pain M54.51 ; Other chronic pain G89.29 and Obstructive sleep apnea (adult) (pediatric) G47.33 [facility] [address] [place], [place] [id number] 04/25/2024 Phill Huangbebe Vertebrogenic low ba ck pain M54.51 ; Other chronic pain G89.29 and Obstructive sleep apnea (adult) (pediatric) G47.33 [facility] [address] [place], [place] [id number] 06/05/2024 Phill Salbebe Vertebrogenic low ba ck pain M54.51 ; Other chronic pain G89.29 and Obstructive sleep apnea (adult) (pediatric) G47.33 Assessments Encounter Date Diagnosis (ICD Code) Assessment Notes Treatment Notes Treatment Clinical Notes Section Notes 10/11/2023 Vertebrogenic low back pain (ICD-10 - M54.51) Chronic axial lumbosacral spine pain. 12/14/2023 Other chronic pain (ICD-10 - G89.29) Patient reports that taking his pain medication has allowed him to climb ladders and continue painting. Plan to continue oral opioid medication management. 12/14/2023 Vertebrogenic low back pain (ICD-10 - M54.51) Chronic axial lumbosacral spine pain. 02/07/2024 Vertebrogenic low back pain (ICD-10 - M54.51) Chronic axial lumbosacral spine pain. 04/25/2024 Vertebrogenic low back pain (ICD-10 - M54.51) Chronic axial lumbosacral spine pain. 06/05/2024 Vertebrogenic low back pain (ICD-10 - M54.51) Chronic axial lumbosacral spine pain. 04/25/2024 Other chronic pain (ICD-10 - G89.29) Patient reports that taking his pain medication allows him to continue working. Plan to continue oral opioid medication management. 06/05/2024 Other chronic pain (ICD-10 - G89.29) Patient reports that taking his pain medication allows him to continue working. Plan to continue oral opioid medication management. 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 Plan to continue oral opioid medication management. 12/14/2023 Obstructive sleep apnea (adult) (pediatric) (ICD-10 - G47.33) Patient reports he normally has consistent nightly use of his APAP device. However, he is waiting for a mask replacement at this time. 10/11/2023 Obstructive sleep apnea (adult) (pediatric) (ICD-10 - G47.33) Patient reports he normally has consistent nightly use of his APAP device. However, a piece is broken on his machine right now and he has a tooth ache. Both to soon be resolved per patient report. 10/11/2023 Other chronic pain (ICD-10 - G89.29) Patient reports that taking his pain medication has allowed him to do yard work. Plan to continue oral opioid medication management. 02/07/2024 Obstructive sleep apnea (adult) (pediatric) (ICD-10 - G47.33) Patient reports he is still waiting for the right mask and supplies to resume use of his APAP device. 04/25/2024 Obstructive sleep apnea (adult) (pediatric) (ICD-10 - G47.33) Patient reports he is still waiting for the right mask and supplies to resume use of his APAP device. Plan to continue to restrict opioid use in relation to sleep for safety concerns. 06/05/2024 Obstructive sleep apnea (adult) (pediatric) (ICD-10 - G47.33) Patient reports he is currently not using his APAP device. Plan to continue to restrict opioid use in relation to sleep for safety concerns. 12/14/2023 Other The service was provided by PURNIMA Rodriguez, as part of the ongoing care plan established by Phill Martin MD, who was present in the office for direct supervision during the encounter. 06/05/2024 Other The service was provided by PURNIMA Rodriguez, as part of the ongoing care plan established by Phill Martin MD, who was present in the office for direct supervision during the encounter. Patient was provided with a letter at today's visit informing patient that this clinic is closing due to Dr. Martin's chcf; see scanned document. Terminal prescriptions were given to the patient along with tapering instructions. 02/07/2024 Other The service was provided by PURNIMA Rodriguez, as part of the ongoing care plan established by Phill Martin MD, who was present in the office for direct supervision during the encounter. 04/25/2024 Other The service was provided by PURNIMA Rodriguez, as part of the ongoing care plan established by Phill Martin MD, who was present in the office for direct supervision during the encounter. 10/11/2023 Other Plan Of Treatment No Information Insurance Providers Payer Name Payer Address Payer Phone Subscriber Number Group Number Insured Name Patient Relationship to Insured Coverage Start Date Coverage End Date [employer] [address] [address] [place] [id number] Skip Mccray Self - patient is the insured Medical (General) History Medical History History ICD Code Chronic pain Low back pain Lumbar spondylosis and spinal stenosis Sacroiliitis Mid back pain Thoracic spondylosis Degenerative disc disease Radiculopathy Opioid depdendence (2013) as per externa l medical records review Non-alcoholic fatty liver disease Right upper quadrant pain Hypertension Prior thoracic compression f racture (not supported by more recent thoracic plain films report) Tobacco use, possible COPD Sleep disorder Sleep apnea Obesity, morbid Surgical History Surgery Date(Month/Year) Appendectomy
[2024-09-08 17:02] LABS: Hematocrit 40.0 % (37-53); Hemoglobin 13.10 g/dL (11.27-16.99); Mean Corpuscular HGB Conc 32.8 g/dL (30-55); Mean Corpuscular Hemoglobin 29.1 pg (27-33); Mean Corpuscular Volume 88.9 fl (82-101); Nucleated Red Blood Cells % 0 %; Platelet Count 250 10^3/cmm (157-399); Red Blood Count 4.50 10^6/uL (3.85-5.65); White Blood Count 24.87 10^3/uL (3.29-11.43)
[2024-09-08 17:28] LABS: Alanine Aminotransferase 10 U/L (0-41); Albumin Level 3.7 g/dL (3.5-5.2); Alkaline Phosphatase 36 U/L (40-130); Anion Gap 19.0 (5-19); Aspartate Amino Transferase 11 U/L (0-40); Blood Urea Nitrogen 8 mg/dL (6-20); Calcium 8.9 mg/dL (8.5-10.5); Carbon Dioxide 21 mmol/L (22-29); Chloride 99 mmol/L (98-107); Creatinine Clr Calc Pharmacy 163.2004; Globulin 4.0 g/dL (1.3-4.6); Glucose 116 mg/dL (65-115); Lipase 16 U/L (13-60); Osmolality Calculated 279 mOsm/kg (285-295); Potassium 4.0 mmol/L (3.5-5.1); Sodium 135 mmol/L (136-145); Total Protein 7.7 g/dL (6.6-8.7)
--- NOTE | 2024-09-08 18:00 | ED_ITS ---
HPI - Male Genitourinary 2 General: Chief complaint: Urogenital-Male Stated complaint: trouble urinating, blood in urine Time Seen by Provider: 09/08/24 17:57 History of Present Illness: 59-year-old male with history of morbid obesity, chronic pain syndrome, chronic opioid therapy, recent biceps tendon repair on the right arm, who presents to the emergency room with weakness, urinary symptoms including frequency and dysuria, possible fever, body aches, headache. This been going on since yesterday. He also is complaining of some constipation. He is increased his dosage of his hydrocodone after surgery. No altered mental status. No focal motor deficits. No vomiting but he has been nauseous. Related Data Home Medications ?Medication ?Instructions ?Recorded ?Confirmed cholecalciferol (vitamin D3) 125 125 mcg PO DAILY 07/3008/26/24 mcg (5,000 unit) tablet (Vitamin D3) coenzyme Q10 400 mg capsule (Co 400 mg PO DAILY 08/26/24 Q-10) garlic 1,000 mg capsule 1,000 mg PO DAILY 08/26/24 0 08/26/24 soybean, fermented 50 mg capsule 50 mg PO DAILY 08/26/24 (Nattokinase) Previous Rx's ?Medication ?Instructions ?Recorded testosterone 1 pump topical DAILY #75 gra ms 05/15/24 hydrocodone 10 mg-acetaminophen 1 tab PO Q4H PRN pain 7 days #42 09/02/24 325 mg tablet tabs Allergies Allergy/AdvReac Type Severity Reaction Status Date / Time Sulfa (Sulfonamide Allergy Severe anaphylacti Verified 09/08/24 16:15 Antibiotics) c Review of Systems 2 Narrative: Constitutional symptoms: Negative except as documented in HPI. Skin symptoms: Negative except as documented in HPI. Eye symptoms: Negative except as documented in HPI. ENMT symptoms: Negative except as documented in HPI. Respiratory symptoms: Negative except as documented in HPI. Cardiovascular symptoms: Negative except as documented in HPI. Gastrointestinal symptoms: Negative except as documented in HPI. Genitourinary symptoms: Negative except as documented in HPI. Musculoskeletal symptoms: Negative except as documented in HPI. Neurologic symptoms: Negative except as documented in HPI. Psychiatric symptoms: Negative except as documented in HPI. Endocrine symptoms: Negative except as documented in HPI. [facility] ED 2 PFS: Medical History (Updated 09/08/24 @ 20:30 by Mojgan Miles MD) Degenerative disc disease Opioid dependence Chronic pain syndrome Nonalcoholic fatty liver disease Family History Other Adopted Denies family history of Bleeding disorder Social History Smoking and tobacco/nicotine status: current every day tobacco/nicotine user cigarettes and smokeless tobacco Second hand smoke exposure: No Alcohol intake: current Alcohol intake frequency: holidays/special occasions only Alcohol type: beer Substance/Drug Use: never Physical Exam 2 Narrative: EXAM NARRATIVE: General: Alert, no acute distress. Skin: Warm, dry. Head: Normocephalic, atraumatic. Neck: Supple, trachea midline. Eye: Extraocular movements are intact. Ears, nose, mouth and throat: Tacky oral mucosa Cardiovascular: Regular, Normal peripheral perfusion. Respiratory: Lungs are clear to auscultation, respirations are non-labored, breath sounds are equal, Symmetrical chest wall expansion. Gastrointestinal: Soft, Nontender, Non distended Musculoskeletal: Normal ROM, no deformity. Neurological: Alert and oriented, No focal neurological deficit observed. Psychiatric: Cooperative, appropriate mood & affect. Course 2 Vital Signs: Vital signs: Vital Signs Temperature 98.9 F 09/08/24 16:10 Pulse Rate 95 09/08/24 20:00 Respiratory Rate 16 09/08/24 20:00 Blood Pressure 111/64 09/08/24 20:00 Pulse Oximetry 94 09/08/24 20:00 Oxygen Delivery Me thod Room Air 09/08/24 20:00 MDM - Male Medical Decision Making Medical decision making: Differential diagnosis including but not limited to and based on the above HPI, review of systems and physical exam: Differential diagnosis for patient with dysuria / lower abdominal pain: Ureterolithiasis. Urinary tract infection. Cystitis. With the possibility of sepsis, pyelonephritis and renal failure. Orders placed to evaluate differential diagnosis based on the above differential, HPI and physical exam Possible sepsis: Patient arrived in the room about 2 hours after his arrival in the emergency room at which point I was able to take history. Immediately ordered 2 L of fluid and IV antibiotics for possible sepsis. Urinalysis was pending at this time. I also ordered blood cultures and a lactic acid at that time. Lab Review: Laboratory results were reviewed and interpreted by myself the emergency room physician. Leukocytosis with white count 25,000. No anemia. No renal failure. Urine has greater than 100 whites and greater than 100 reds. Trace bacteria. Nitrate positive. CT of the abdomen pelvis without contrast: I do not see any hydronephrosis. His ureters I can traced all the way to the bladder. No stones. Films were interpreted by myself the emergency room provider and pending final radiology review. I reviewed the patient's medical record. Reexamination: Consultation: I spoke with Dr. Weiner who is on-call for the hospital service who agrees to admission. Assessment and plan: Urinary tract infection Possible sepsis -2.5 L normal saline bolus. Fluid volumes based on ideal body weight. - Cefepime was given -Sepsis quality measures. -Lactic acid with a reflex was ordered. -Blood cultures were ordered. -I discussed the patient with the hospitalist on-call who is admitting the patient. - Discussed findings and plan with patient. Answered any questions. - All laboratory values were reviewed and interpreted personally by myself, the ER physician - All imaging was reviewed and interpreted personally by myself, the ER physician. - Evaluation and treatment of this problem were appropriate in the emergency setting Lab Data 09/08/24 16:47 09/08/24 16:47 Laboratory Results WBC 24.87 10^3/uL (3.29-11.43) H 09/08/24 16:47 RBC 4.50 10^6/uL (3.85-5.65) 09/08/24 16:47 Hgb 13.10 g/dL (11.27-16.99) 09/08/24 16:47 Hct 40.0 % (37-53) 09/08/24 16:47 MCV 88.9 fl (82-101) 09/08/24 16:47 MCH 29.1 pg (27-33) 09/08/24 16:47 MCHC 32.8 g/dL (30-55) 09/08/24 16:47 RDW 13.5 % (12.1-15.1) 09/08/24 16:47 Plt Count 250 10^3/cmm (157-399) 09/08/24 16:47 MPV 9.1 fL (7.4-10.4) 09/08/24 16:47 Neut % (Auto) 85.2 % 09/08/24 16:47 Lymph % (Auto) 6.9 % 09/08/24 16:47 [place] % (Auto) 6.8 % 09/08/24 16:47 Eos % (Auto) 0.1 % 09/08/24 16:47 Baso % (Auto) 0.3 % 09/08/24 16:47 Neut # (Auto) 21.19 10^3/uL (1.8-7.7) H 09/08/24 16:47 Lymph # (Auto) 1.7 10^3/uL (0.8-4.8) 09/08/24 16:47 [place] # (Auto) 1.7 10^3/uL (0.2-0.9) H 09/08/24 16:47 Eos # (Auto) 0.0 10^3/uL (0.0-0.8) 09/08/24 16:47 Baso # (Auto) 0.1 10^3/uL (0.0-0.1) 09/08/24 16:47 Nucleated RBC % (auto) 0 % 09/08/24 16:47 Nucleated RBCs # 0.0 /100WBC 09/08/24 16:47 Sodium 135 mmol/L (136-145) L 09/08/24 16:47 Potassium 4.0 mmol/L (3.5-5.1) 09/08/24 16:47 Chloride 99 mmol/L (98-107) 09/08/24 16:47 Carbon Dioxide 21 mmol/L (22-29) L 09/08/24 16:47 Anion Gap 19.0 (5-19) 09/08/24 16:47 BUN 8 mg/dL (6-20) 09/08/24 16:47 Creatinine 0.7 mg/dL (0.7-1.2) 09/08/24 16:47 GFR Calculation 116.2 mL/min (90-130) 09/08/24 16:47 Glucose 116 mg/dL (65-115) H 09/08/24 16:47 Calculated Osmolality 279 mOsm/kg (285-295) L 09/08/24 16:47 Lactic Acid 1.1 mmol/L (0.5-2.2) 09/08/24 16:47 Calcium 8.9 mg/dL (8.5-10.5) 09/08/24 16:47 Total Bilirubin 1.7 mg/dL (0.15-1.2) H 09/08/24 16:47 AST 11 U/L (0-40) 09/08/24 16:47 ALT 10 U/L (0-41) 09/08/24 16:47 Alkaline Phosphatase 36 U/L (40-130) L 09/08/24 16:47 Total Protein 7.7 g/dL (6.6-8.7) 09/08/24 16:47 Albumin 3.7 g/dL (3.5-5.2) 09/08/24 16:47 Globulin 4.0 g/dL (1.3-4.6) 09/08/24 16:47 Lipase 16 U/L (13-60) 09/08/24 16:47 Urine Color [place] (Yellow) A 09/08/24 18:05 Urine Appearance Turbid (CLEAR) A 09/08/24 18:05 Urine pH 5.5 (5-7) 09/08/24 18:05 Ur Specific [place] 1.027 (1.005-1.030) 09/08/24 18:05 Urine Protein 3+ (Negative) A 09/08/24 18:05 Urine Glucose (UA) Negative (Normal) 09/08/24 18:05 Urine Ketones Trace (Negative) 09/08/24 18:05 Urine Blood 3+ (Negative) A 09/08/24 18:05 Urine Nitrate Positive (Negative) A 09/08/24 18:05 Urine Bilirubin 2+ (Negative) H 09/08/24 18:05 Urine Urobilinogen 1.0 mg/dL (Negative) 09/08/24 18:05 Ur Leukocyte Esterase 3+ (Negative) A 09/08/24 18:05 Urine RBC >100 /hpf (0-2) H 09/08/24 18:05 Urine WBC >100 /hpf (0-5) H 09/08/24 18:05 Ur Squamous Epith Cells 0-5 /hpf (0-5) 09/08/24 18:05 Amorphous Sediment Not Reportable 09/08/24 18:05 Urine Bacteria Trace /hpf (NONE) 09/08/24 18:05 Hyaline Casts 3.85 /lpf 09/08/24 18:05 XR interpretation done by ED provider, pending radiology final review Discharge Plan Discharge Patient Disposition: Admitted As Inpatient Clinical Impression: Urinary tract infection, Sepsis Condition: Stable Coding Level of Care Code ED Substation Electric[employer] Supervisor for Amie Barbosa
[2024-09-08 18:21] LABS: Glucose Urine UA Negative (Normal); Nitrate Urine Positive (Negative); Specific Gravity, Urine 1.027 (1.005-1.030)
[2024-09-08] MEDS: cefepime 2,000 mg SDV 2000 MG IVP (18:24)
[2024-09-08 18:27] LABS: Add Urine Microscopic? YES; Universal Test for UA Present (0)
[2024-09-08] MEDS: ondansetron 2 mg/ML SDV 2 mL 8 MG IVP (18:49)
[2024-09-08] MEDS: morphine 4 mg/mL SDV 1 mL IVP ×2 (18:50→22:05)
[2024-09-08] MEDS: acetaminophen 1,000 MG/100 ML PIGGYBACK 400 MG IV (18:52)
[2024-09-08 18:56] LABS: Lactic Sepsis W/Reflex 1.1 mmol/L (0.5-2.2)
--- NOTE | 2024-09-08 19:07 | CTR_ITS ---
PROCEDURE INFORMATION: Exam: CT Abdomen And Pelvis With Contrast Exam date and time: 09/08/2024 7:50 PM Age: 59 years old Clinical indication: Fever and other: Hematuria; Abdominal pain; Generalized; Prior surgery; Surgery date: 6+ months; Surgery type: Appy; Diffuse abd pain with fever and hematuria. TECHNIQUE: Imaging protocol: Computed tomography of the abdomen and pelvis with contrast. Radiation optimization: All CT scans at this facility use at least one of these dose optimization techniques: automated exposure control; mA and/or kV adjustment per patient size (includes targeted exams where dose is matched to clinical indication); or iterative reconstruction. Contrast material: OMNI 350; Contrast volume: 100 ml; Contrast route: INTRAVENOUS (IV); COMPARISON: CT abdomen w con* [id number] 08/22/2023 3:22 PM RADIATION DOSE METRICS: Total DLP (mGy-cm): 1806.74 FINDINGS: Lungs: Bibasilar atelectasis. Liver: Hepatic steatosis. Gallbladder and biliary ducts: Normal. No calcified stones. No ductal dilation. Pancreas: Normal. No ductal dilation. Spleen: Normal. No splenomegaly. Adrenal glands: Normal. No mass. Kidneys and ureters: Perinephric edema bilaterally likely reflecting renal insufficiency, please correlate for pyelonephritis. Stomach and bowel: Prominent fluid in the stomach and small bowel, please correlate for a gastroenteritis. Diverticulosis without diverticulitis. Appendix: No evidence of appendicitis. Intraperitoneal space: Unremarkable. No free air. No significant fluid collection. Vasculature: Unremarkable. No abdominal aortic aneurysm. Lymph nodes: Unremarkable. No enlarged lymph nodes. Urinary bladder: Urinary bladder wall thickening likely due to nondistention, please correlate for cystitis. Reproductive: Edema seen about the prostate gland, please correlate for prostatitis. Prostate gland enlarged. Bones/joints: Unremarkable. No acute fracture. Soft tissues: Unremarkable. CT/CT abdomen pelvis w con* [id number] IMPRESSION: 1. Urinary bladder wall thickening likely due to nondistention, please correlate for cystitis. 2. Edema seen about the prostate gland, please correlate for prostatitis. 3. Prominent fluid in the stomach and small bowel, please correlate for a gastroenteritis. 4. Prostate gland enlarged. 5. Perinephric edema bilaterally likely reflecting renal insufficiency, please correlate for pyelonephritis. 6. Bibasilar atelectasis. 7. Hepatic steatosis. 8. Diverticulosis without diverticulitis.
--- NOTE | 2024-09-08 19:20 | CTR_ITS ---
PROCEDURE INFORMATION: Exam: CT Right Upper Extremity With Contrast, Elbow Exam date and time: 09/08/2024 8:05 PM Age: 59 years old Clinical indication: Right; Prior surgery; Surgery date: <1 month; Surgery type: Two weeks post op from bicep tendon repair; C/O RT elbow pain with fever. ; Additional info: Post operative fever TECHNIQUE: Imaging protocol: Computed tomography of the right upper extremity with contrast. Exam focused on the elbow. Radiation optimization: All CT scans at this facility use at least one of these dose optimization techniques: automated exposure control; mA and/or kV adjustment per patient size (includes targeted exams where dose is matched to clinical indication); or iterative reconstruction. Contrast material: OMNI 350; Contrast volume: 50 ml; Contrast route: INTRAVENOUS (IV); COMPARISON: MR elbow RT wo con* [id number] 08/22/2024 2:24 PM RADIATION DOSE METRICS: Total DLP (mGy-cm): 2597.22 FINDINGS: Tubes, catheters and devices: Surgical fixation device in the region of the proximal radius likely related to history of biceps tendon repair. Minimal surrounding edema of the musculature is suspected which may be postsurgical in nature, infection is not excluded based on imaging alone, please correlate clinically, MRI could better characterize the soft tissues. Bones/joints: See above. Soft tissues: See Tubes, catheters and devices finding. CT/CT elbow RT w con [id number] IMPRESSION: Surgical fixation device in the region of the proximal radius likely related to history of biceps tendon repair. Minimal surrounding edema of the musculature is suspected which may be postsurgical in nature, infection is not excluded based on imaging alone, please correlate clinically, MRI could better characterize the soft tissues.
[2024-09-08] MEDS: iohexol 350 mg/mL 500 mL Btl (per mL) IV (20:07)
--- NOTE | 2024-09-08 23:07 | PC.NURSE ---
Fluid bolus Patient had order for 500 ml fluid bolus that was late on arrival to ICU. Order was put in as one-time and was no longer listed under the patient in the Pyxis. Contacted Dr Batista regarding if she wanted patient to receive 500 ml bolus as patient was currently finishing up a 2 L bolus that was started by the ER. Dr Batista gave order to not give the 500 ml bolus.
--- NOTE | 2024-09-08 23:29 | PM.HP ---
Providers/Chief Complaint Admitting Physician: Crystal Batista MD Primary Care Provider: Lyubov Diaz MD Chief Complaint: trouble urinating, blood in urine History of Present Illness Skip Mccray is a 59 year old male with a past medical history of hypertension, obesity, chronic opioid use, history of right distal bicep tendon tear for which he underwent repair on August 26, 2024. He presents to the emergency room today complaining of increased urinary frequency, feeling of incomplete evacuation and urinary burning. Patient states he has had on and off symptoms of incomplete evacuation over the past year but not make very much of his symptoms. Yesterday, in addition to the symptoms listed above he also started noticing blood in his urine. He reports this as being red in color. Deneis any past h/o UTIs or STD. Review of Systems General: Reports: 10 or more systems reviewed and unremarkable except in HPI and below Const: Denies: fever(s), chills or body aches Eyes: Denies: change in vision, blurry vision or photophobia ENMT: Reports: hoarseness; Denies: throat pain, enlarged tonsils, odynophagia or nasal congestion Card: Denies: chest pain, palpitations, irregular heart rhythm, edema, swelling of feet/ankles, lightheadedness, pre-syncope, dyspnea on exertion or orthopnea Resp: Denies: dyspnea, productive cough, non-productive cough, wheezing, stridor, pain on inspiration, change in phlegm color, hemoptysis or chest congestion GI: Denies: abdominal pain, nausea, vomiting, hematemesis, coffee ground emesis, dysphagia, heartburn, diarrhea, constipation, GI cramping, change in stool character, hematochezia or melena : Denies: flank pain, dysuria, urinary frequency, urinary urgency, urinary hesitancy or hematuria Musc: Denies: neck pain, back pain, extremity pain, joint swelling, joint warmth or deformity Neuro: Denies: headache(s), numbness in extremities, weakness in extremities, sensory changes, difficulty walking, frequent falls, dizziness, vertigo, behavioral changes, Slurred speech present or seizure-like activity Psych: Denies: anxiety, depression, suicidal ideation or homicidal ideation Endo: Denies: polyuria, polydipsia, tired all the time, cold intolerance or hot flashes [place]/Lymph: Denies: easy bruising or easy bleeding Medications/Allergies Home Medications ?Medication ?Instructions ?Recorded ?Confirmed ?Last Taken ?Type testosterone 1 pump topical DAILY #75 grams 05/15/24 08/26/24 08/26/24 Rx cholecalciferol (vitamin D3) 125 125 mcg PO DAILY 08/26/24 08/26/24 08/25/24 History mcg (5,000 unit) tablet (Vitamin D3) coenzyme Q10 400 mg capsule (Co 400 mg PO DAILY 08/26/24 08/26/24 08/25/24 History Q-10) garlic 1,000 mg capsule 1,000 mg PO DAILY 08/26/24 08/26/24 08/25/24 History soybean, fermented 50 mg capsule 50 mg PO DAILY 08/26/24 08/26/24 08/25/24 History (Nattokinase) hydrocodone 10 mg-acetaminophen 1 tab PO Q4H PRN pain 7 days #42 09/02/24 Unknown Rx 325 mg tablet tabs Allergies Allergy/AdvReac Type Severity Reaction Status Date / Time Sulfa (Sulfonamide Allergy Severe anaphylacti Verified 09/08/24 16:15 Antibiotics) c PFSH Acute PFSH: Medical History Degenerative disc disease Opioid dependence Chronic pain syndrome Nonalcoholic fatty liver disease Family History Other Adopted Denies family history of Bleeding disorder Social History Smoking and tobacco/nicotine status: current every day tobacco/nicotine user cigarettes and smokeless tobacco Second hand smoke exposure: No Alcohol intake: current Alcohol intake frequency: holidays/special occasions only Alcohol type: beer Substance/Drug Use: never Vitals/I&O/Wt Last Vital Signs Temp 98.9 F 09/08/24 16:10 Pulse 89 09/08/24 22:26 Resp 16 09/08/24 22:26 BP 101/56 09/08/24 22:26 Pulse Ox 95 09/08/24 22:26 O2 Del Method Room Air 09/08/24 22:40 09/08/24 09/08/24 09/09/24 14:59 22:59 06:59 Intake Total 2099 Balance 2099 Weight last 48 hrs Weight 145.15 kg Physical Exam Narrative: General: No acute distress, AO x3 HEENT: PERRLA, pupils bilaterally equal and reactive, pallors not present Chest: Normal vesicular breath sounds, no added sounds, equal good air entry bilaterally CVS: S1-S2 regular, no murmurs, no tachycardia, no gallops, no rubs Abdomen: Soft, nontender, no organomegaly, bowel sounds present Neuro: No focal deficits, no facial deformity, AO x3, power 5/5 in all limbs EXT: right arm sling removed, no obvious signs of infection Data 09/08/24 16:47 09/08/24 16:47 Micro: Microbiology 09/08/24 18:20 Blood Culture - Preliminary Blood SPECIMEN COLLECTED 09/08/24 18:15 Blood Culture - Preliminary Blood SPECIMEN COLLECTED Other data: Radiology Impressions Abdomen/Pelvis CT 09/08/24 19:07 IMPRESSION: 1. Urinary bladder wall thickening likely due to nondistention, please correlate for cystitis. 2. Edema seen about the prostate gland, please correlate for prostatitis. 3. Prominent fluid in the stomach and small bowel, please correlate for a gastroenteritis. 4. Prostate gland enlarged. 5. Perinephric edema bilaterally likely reflecting renal insufficiency, please correlate for pyelonephritis. 6. Bibasilar atelectasis. 7. Hepatic steatosis. 8. Diverticulosis without diverticulitis. Elbow CT 09/08/24 19:20 IMPRESSION: Surgical fixation device in the region of the proximal radius likely related to history of biceps tendon repair. Minimal surrounding edema of the musculature is suspected which may be postsurgical in nature, infection is not excluded based on imaging alone, please correlate clinically, MRI could better characterize the soft tissues. Laboratory Results WBC 24.87 10^3/uL (3.29-11.43) H 09/08/24 16:47 RBC 4.50 10^6/uL (3.85-5.65) 09/08/24 16:47 Hgb 13.10 g/dL (11.27-16.99) 09/08/24 16:47 Hct 40.0 % (37-53) 09/08/24 16:47 MCV 88.9 fl (82-101) 09/08/24 16:47 MCH 29.1 pg (27-33) 09/08/24 16:47 MCHC 32.8 g/dL (30-55) 09/08/24 16:47 RDW 13.5 % (12.1-15.1) 09/08/24 16:47 Plt Count 250 10^3/cmm (157-399) 09/08/24 16:47 MPV 9.1 fL (7.4-10.4) 09/08/24 16:47 Neut % (Auto) 85.2 % 09/08/24 16:47 Lymph % (Auto) 6.9 % 09/08/24 16:47 [place] % (Auto) 6.8 % 09/08/24 16:47 Eos % (Auto) 0.1 % 09/08/24 16:47 Baso % (Auto) 0.3 % 09/08/24 16:47 Neut # (Auto) 21.19 10^3/uL (1.8-7.7) H 09/08/24 16:47 Lymph # (Auto) 1.7 10^3/uL (0.8-4.8) 09/08/24 16:47 [place] # (Auto) 1.7 10^3/uL (0.2-0.9) H 09/08/24 16:47 Eos # (Auto) 0.0 10^3/uL (0.0-0.8) 09/08/24 16:47 Baso # (Auto) 0.1 10^3/uL (0.0-0.1) 09/08/24 16:47 Nucleated RBC % (auto) 0 % 09/08/24 16:47 Nucleated RBCs # 0.0 /100WBC 09/08/24 16:47 Sodium 135 mmol/L (136-145) L 09/08/24 16:47 Potassium 4.0 mmol/L (3.5-5.1) 09/08/24 16:47 Chloride 99 mmol/L (98-107) 09/08/24 16:47 Carbon Dioxide 21 mmol/L (22-29) L 09/08/24 16:47 Anion Gap 19.0 (5-19) 09/08/24 16:47 BUN 8 mg/dL (6-20) 09/08/24 16:47 Creatinine 0.7 mg/dL (0.7-1.2) 09/08/24 16:47 GFR Calculation 116.2 mL/min (90-130) 09/08/24 16:47 Glucose 116 mg/dL (65-115) H 09/08/24 16:47 Calculated Osmolality 279 mOsm/kg (285-295) L 09/08/24 16:47 Lactic Acid 1.1 mmol/L (0.5-2.2) 09/08/24 16:47 Calcium 8.9 mg/dL (8.5-10.5) 09/08/24 16:47 Total Bilirubin 1.7 mg/dL (0.15-1.2) H 09/08/24 16:47 AST 11 U/L (0-40) 09/08/24 16:47 ALT 10 U/L (0-41) 09/08/24 16:47 Alkaline Phosphatase 36 U/L (40-130) L 09/08/24 16:47 Total Protein 7.7 g/dL (6.6-8.7) 09/08/24 16:47 Albumin 3.7 g/dL (3.5-5.2) 09/08/24 16:47 Globulin 4.0 g/dL (1.3-4.6) 09/08/24 16:47 Lipase 16 U/L (13-60) 09/08/24 16:47 Urine Color [place] (Yellow) A 09/08/24 18:05 Urine Appearance Turbid (CLEAR) A 09/08/24 18:05 Urine pH 5.5 (5-7) 09/08/24 18:05 Ur Specific [place] 1.027 (1.005-1.030) 09/08/24 18:05 Urine Protein 3+ (Negative) A 09/08/24 18:05 Urine Glucose (UA) Negative (Normal) 09/08/24 18:05 Urine Ketones Trace (Negative) 09/08/24 18:05 Urine Blood 3+ (Negative) A 09/08/24 18:05 Urine Nitrate Positive (Negative) A 09/08/24 18:05 Urine Bilirubin 2+ (Negative) H 09/08/24 18:05 Urine Urobilinogen 1.0 mg/dL (Negative) 09/08/24 18:05 Ur Leukocyte Esterase 3+ (Negative) A 09/08/24 18:05 Urine RBC >100 /hpf (0-2) H 09/08/24 18:05 Urine WBC >100 /hpf (0-5) H 09/08/24 18:05 Ur Squamous Epith Cells 0-5 /hpf (0-5) 09/08/24 18:05 Amorphous Sediment Not Reportable 09/08/24 18:05 Urine Bacteria Trace /hpf (NONE) 09/08/24 18:05 Hyaline Casts 3.85 /lpf 09/08/24 18:05 A&P Assessment and plan 1. Pyelonephritis: 59-year-old male with a past medical history as noted above, presented to the hospital with chief complaints of fever, dysuria, increased frequency of micturition, and leukocytosis along with left flank pain. Patient states that typically he has right lower sacral pain for which he takes opiates, the left pain is new for him. There is tenderness to palpation along the left flank. UA positive WBCs, nitrate and leukocyte esterase. Clinical impression is that of acute pyelonephritis. Urine culture and blood culture have been taken in the emergency room and currently pending. Bladder scan was performed which did not show any evidence of urinary retention at this time. CT of the abdomen and pelvis showing urinary bladder wall thickening, possible cystitis, edema in the prostate gland, possible prostatitis. In addition to urine culture, also check urine GC chlamydia. Patient denies any past history of STDs. Patient's right arm sling was taken down and dressing open for examination. There are no signs of cellulitis or abscess or any unusual appearing drainage at the recent surgical site. Elbow CT showing minimal edema around the musculature of the elbow which is suspected to be postsurgical in nature. DVT prophylaxis: Lovenox 40 mg subcutaneously Full code PDMP PDMP Reviewed: Not Reviewed Attestations Medical Necessity Statement*: Greater than 2 midnight stay is anticipated Coding Level of Care Code Acute Code for [facility] Diagnoses Pyelonephritis N12
[2024-09-09] VITALS (46 sets, daily range): BP systolic 94–179; BP diastolic 58–93; PULSE 80–104; RESP 14–30; TEMP 36.2; O2SAT 89–98
[2024-09-09 00:15] LABS: Procalcitonin 0.29 ng/mL (0-0.5)
[2024-09-09] MEDS: HYDROcodone-acetaminophen 10-325 mg Tablet 1 TAB PO (00:28)
[2024-09-09] MEDS: piperacillin-tazobactam 3.375 GM in sodium chloride 0.9% (plus) 50 ML IV ×3 (04:03→19:20)
[2024-09-09 05:09] LABS: Hematocrit 36.7 % (37-53); Hemoglobin 11.90 g/dL (11.27-16.99); Mean Corpuscular HGB Conc 32.4 g/dL (30-55); Mean Corpuscular Hemoglobin 29.6 pg (27-33); Mean Corpuscular Volume 91.3 fl (82-101); Nucleated Red Blood Cells % 0 %; Platelet Count 211 10^3/cmm (157-399); Red Blood Count 4.02 10^6/uL (3.85-5.65); White Blood Count 24.94 10^3/uL (3.29-11.43)
[2024-09-09 05:30] LABS: Alanine Aminotransferase 9 U/L (0-41); Albumin Level 3.4 g/dL (3.5-5.2); Alkaline Phosphatase 38 U/L (40-130); Anion Gap 14.6 (5-19); Aspartate Amino Transferase 8 U/L (0-40); Blood Urea Nitrogen 9 mg/dL (6-20); Calcium 8.6 mg/dL (8.5-10.5); Carbon Dioxide 24 mmol/L (22-29); Chloride 103 mmol/L (98-107); Creatinine Clr Calc Pharmacy 190.4005; Globulin 3.5 g/dL (1.3-4.6); Glucose 102 mg/dL (65-115); Magnesium 1.9 mg/dL (1.7-2.3); Osmolality Calculated 285 mOsm/kg (285-295); Potassium 3.6 mmol/L (3.5-5.1); Sodium 138 mmol/L (136-145); Total Protein 6.9 g/dL (6.6-8.7)
[2024-09-09] MEDS: HYDROmorphone 0.5 MG/0.5 ML INJ IVP (06:18)
--- NOTE | 2024-09-09 08:57 | P.PN_ITS ---
Subjective 2 Subjective: Patient is in the hospital for urinary tract infection. Wound on elbow is clean dry intact at this point he is 2 weeks out from surgery. Not complaining of any pain in the elbow. Vitals/I&O/Wt Last Vital Signs Temp 98.9 F 09/08/24 16:10 Pulse 87 09/09/24 04:00 Resp 22 H 09/09/24 04:00 BP 107/67 09/09/24 03:30 Pulse Ox 96 09/09/24 04:00 O2 Del Method Room Air 09/08/24 22:40 09/08/24 09/09/24 09/09/24 22:59 06:59 14:59 Intake Total 2100 / 2100 Output Total 950 / 950 Balance 2100 / 2100 -950 / 1150 Weight last 48 hrs Weight 314 lb 2.539 oz Weight 320 lb Physical Exam 2 Narrative: Alert and oriented x 3 Head is normocephalic atraumatic Respirations are intact Dressing is currently wrapped. He Dr. Batista took a down look to the wound said that it looked completely clean and dry. Patient stated he is able to do range of motion with it with minimal pain. Data 09/09/24 03:52 09/09/24 03:52 Micro: Microbiology 09/08/24 18:20 Blood Culture - Preliminary Blood SPECIMEN COLLECTED 09/08/24 18:15 Blood Culture - Preliminary Blood SPECIMEN COLLECTED A&P Assessment and plan 1. Rupture of right biceps tendon, subsequent encounter: Patient is 2 weeks out from repair of the distal bicep. He can start doing gentle range of motion exercises. PDMP PDMP Reviewed: Not Reviewed Attestations 2 Medical Necessity Statement*: Per primary service Coding Level of Care Code Acute Code for Chg Fwd Diagnoses Rupture of right biceps tendon, subsequent encounter S46.211D Encounter type: subsequent encounter Laterality: right
[2024-09-09] MEDS: oxyCODONE 5 mg IR Tab/Cap PO ×3 (11:29→22:56)
[2024-09-09 13:01] LABS: Neisseria Gonorrhea NOT DETECTED (Negative)
--- NOTE | 2024-09-09 16:08 | P.PN_ITS ---
Subjective 2 Subjective: Patient was seen this morning, currently alert oriented x 3, following all commands, no fevers, no chills, does complain of left flank pain, no lightheadedness, no dizziness Vitals/I&O/Wt Last Vital Signs Temp 97.1 F L 09/09/24 13:00 Pulse 94 09/09/24 15:30 Resp 14 09/09/24 16:00 BP 110/68 09/09/24 16:00 Pulse Ox 96 09/09/24 16:00 O2 Del Method Room Air 09/09/24 16:00 09/09/24 09/09/24 09/09/24 06:59 14:59 22:59 Intake Total 1290 / 1290 50 / 1340 Output Total 950 / 950 Balance -950 / 1150 1290 / 1290 50 / 1340 Weight last 48 hrs Weight 142.5 kg Weight 145.15 kg Physical Exam 2 Const: COMMON NORMALS: no acute distress and patient oriented x3 Resp: COMMON NORMALS: normal respiratory effort, No retractions, No use of accessory muscles and clear to auscultation bilaterally AUSCULTATION: clear to auscultation bilaterally Cardio: COMMON NORMALS: regular rate, regular rhythm, S1 normal heart sound present and S2 normal heart sound present RATE: regular rate RHYTHM: r egular rhythm HEART SOUNDS: S1 normal heart sound present and S2 normal heart sound present GI: COMMON NORMALS: Normal to inspection, nondistended, normoactive bowel sounds present and non-tender Extremity: COMMON NORMALS: no pedal edema Neuro: COMMON NORMALS: patient oriented x3 Psych: COMMON NORMALS: mental status grossly normal Data 09/09/24 03:52 09/09/24 03:52 Micro: Microbiology 09/08/24 18:20 Blood Culture - Preliminary Blood SPECIMEN COLLECTED 09/08/24 18:15 Blood Culture - Preliminary Blood SPECIMEN COLLECTED A&P Assessment and plan 1. Rupture of right biceps tendon, subsequent encounter: 2. Pyelonephritis: 3. Urinary tract infection: 4. Sepsis: 5. Prostatitis: Plan: Acute pyelonephritis, with UTI with concerns for prostatitis CT scan abdomen pelvis CT/CT abdomen pelvis w con* [id number] IMPRESSION: 1. Urinary bladder wall thickening likely due to nondistention, please correlate for cystitis. 2. Edema seen about the prostate gland, please correlate for prostatitis. 3. Prominent fluid in the stomach and small bowel, please correlate for a gastroenteritis. 4. Prostate gland enlarged. 5. Perinephric edema bilaterally likely reflecting renal insufficiency, please correlate for pyelonephritis. 6. Bibasilar atelectasis. 7. Hepatic steatosis. 8. Diverticulosis without diverticulitis. -With evidence of sepsis Plan -Will moved to medical floors - Continue IV Zosyn - Blood culture - Urine culture - Monitor clinical status closely - Monitor urine output -Prediabetes, monitor blood sugars - Full code - Lovenox for DVT prophylaxis PDMP PDMP Reviewed: Not Reviewed Attestations 2 Medical Necessity Statement*: Patient requires hospitalization, UTI, pyelonephritis, prostatitis, sepsis Diagnoses Rupture of right biceps tendon, subsequent encounter S46.211D Encounter type: subsequent encounter Laterality: right Pyelonephritis N12 Urinary tract infection N39.0 Sepsis A41.9 Prostatitis N41.9 Sepsis Event Note Evaluation Current stage of sepsis: sepsis Possible source: genitourinary Focused Exam Vital Signs Temp Pulse Resp BP Pulse Ox O2 Del Method 09/09/24 16:00 14 110/68 96 Room Air 09/09/24 15:30 94 16 112/59 09/09/24 15:00 87 22 H 179/93 94 09/09/24 14:30 93 20 H 106/77 09/09/24 14:00 83 20 H 103/61 94 09/09/24 14:00 81 09/09/24 13:30 85 18 100/58 09/09/24 13:00 97.1 F L 89 18 102/74 95 Room Air 09/09/24 12:30 85 15 113/64 95 09/09/24 12:00 93 21 H 94/73 94 09/09/24 11:30 85 16 112/61 95 09/09/24 11:29 17 95 09/09/24 11:00 85 19 H 97/59 93 09/09/24 10:30 88 15 116/66 93 09/09/24 10:00 89 17 120/76 93 Room Air 09/09/24 09:30 91 18 122/70 92 09/09/24 09:00 90 14 141/81 92 09/09/24 08:30 86 26 H 121/71 90 09/09/24 08:00 85 23 H 115/70 95 09/09/24 07:30 85 17 98 09/09/24 07:00 86 19 H 112/62 96 09/09/24 06:30 84 19 H 96 09/09/24 06:00 84 22 H 105/64 93 09/09/24 05:30 86 24 H 111/64 95 09/09/24 05:00 85 25 H 109/87 95 09/09/24 04:30 85 22 H 102/65 95 Capillary refill: > 3 Seconds Peripheral pulse strength: 2+ Slightly Diminished Peripheral pulse location: Pedal Skin exam: normal turgor Date exam was performed: 09/09/24 Time exam was performed: 16:09 Problem List 1. Rupture of right biceps tendon, subsequent encounter: Status: Acute 2. Pyelonephritis: Status: Acute 3. Urinary tract infection: Status: Acute 4. Sepsis: Status: Acute 5. Prostatitis: Status: Acute
--- NOTE | 2024-09-09 22:11 | PC.NURSE ---
Transfer Patient transferred to [place] [id number]. at bedside and all belongings taken with patient.
[2024-09-10] VITALS (8 sets, daily range): BP systolic 115–147; BP diastolic 62–76; PULSE 64–91; RESP 15–19; TEMP 36.5–37.9; O2SAT 94–97
[2024-09-10] MEDS: piperacillin-tazobactam 3.375 GM in sodium chloride 0.9% (plus) 50 ML IV ×3 (04:00→22:41)
[2024-09-10 05:37] LABS: Hematocrit 36.9 % (37-53); Hemoglobin 11.90 g/dL (11.27-16.99); Mean Corpuscular HGB Conc 32.2 g/dL (30-55); Mean Corpuscular Hemoglobin 29.5 pg (27-33); Mean Corpuscular Volume 91.3 fl (82-101); Nucleated Red Blood Cells % 0 %; Platelet Count 187 10^3/cmm (157-399); Red Blood Count 4.04 10^6/uL (3.85-5.65); White Blood Count 15.47 10^3/uL (3.29-11.43)
[2024-09-10 06:10] LABS: Alanine Aminotransferase 8 U/L (0-41); Albumin Level 3.2 g/dL (3.5-5.2); Alkaline Phosphatase 39 U/L (40-130); Anion Gap 16.5 (5-19); Aspartate Amino Transferase 12 U/L (0-40); Blood Urea Nitrogen 9 mg/dL (6-20); Calcium 8.6 mg/dL (8.5-10.5); Carbon Dioxide 24 mmol/L (22-29); Chloride 101 mmol/L (98-107); Creatinine Clr Calc Pharmacy 189.1801; Globulin 3.8 g/dL (1.3-4.6); Glucose 98 mg/dL (65-115); Osmolality Calculated 285 mOsm/kg (285-295); Potassium 3.5 mmol/L (3.5-5.1); Sodium 138 mmol/L (136-145); Total Protein 7.0 g/dL (6.6-8.7)
[2024-09-10] MEDS: oxyCODONE 5 mg IR Tab/Cap PO ×2 (08:21→18:03)
[2024-09-10] MEDS: polyethylene glycol 3350 Pkt 17 gm PO (10:34)
--- NOTE | 2024-09-10 17:05 | P.PN_ITS ---
Subjective 2 Subjective: Patient was seen this morning, currently alert oriented x 3, following all commands, he tells me that he had a fever earlier this morning, he does not feel well after his fever, continues to have left flank pain Vitals/I&O/Wt Last Vital Signs Temp 97.7 F 09/10/24 16:03 Pulse 77 09/10/24 16:03 Resp 16 09/10/24 16:03 BP 125/75 09/10/24 16:03 Pulse Ox 95 09/10/24 16:03 O2 Del Method Room Air 09/10/24 16:03 09/10/24 09/10/24 09/10/24 06:59 14:59 22:59 Intake Total 37.292 / 7524.436 4938 / 1010 50 / 1060 Balance 37.292 / 5956.898 5263 / 1010 50 / 1060 Weight last 48 hrs Weight 143.562 kg Weight 142.5 kg Physical Exam 2 Const: COMMON NORMALS: no acute distress and patient oriented x3 Resp: COMMON NORMALS: normal respiratory effort, No retractions, No use of accessory muscles and clear to auscultation bilaterally AUSCULTATION: clear to auscultation bilaterally Cardio: COMMON NORMALS: regular rate, regular rhythm, S1 normal heart sound present and S2 normal heart sound present RATE: regular rate RHYTHM: r egular rhythm HEART SOUNDS: S1 normal heart sound present and S2 normal heart sound present GI: COMMON NORMALS: Normal to inspection, nondistended, normoactive bowel sounds present and non-tender Extremity: COMMON NORMALS: no pedal edema Neuro: COMMON NORMALS: patient oriented x3 Psych: COMMON NORMALS: mental status grossly normal Data 09/10/24 05:10 09/10/24 05:10 Micro: Microbiology 09/08/24 18:05 Urine Culture - Preliminary Urine,Clean Catch Gram Negative Rods 09/08/24 18:20 Blood Culture - Preliminary Blood NEGATIVE TO DATE 09/08/24 18:15 Blood Culture - Preliminary Blood NEGATIVE TO DATE A&P Assessment and plan 1. Rupture of right biceps tendon, subsequent encounter: 2. Pyelonephritis: 3. Urinary tract infection: 4. Sepsis: 5. Prostatitis: Plan: Acute pyelonephritis, with UTI with concerns for prostatitis CT scan abdomen pelvis CT/CT abdomen pelvis w con* [id number] IMPRESSION: 1. Urinary bladder wall thickening likely due to nondistention, please correlate for cystitis. 2. Edema seen about the prostate gland, please correlate for prostatitis. 3. Prominent fluid in the stomach and small bowel, please correlate for a gastroenteritis. 4. Prostate gland enlarged. 5. Perinephric edema bilaterally likely reflecting renal insufficiency, please correlate for pyelonephritis. 6. Bibasilar atelectasis. 7. Hepatic steatosis. 8. Diverticulosis without diverticulitis. -With evidence of sepsis Plan -Will moved to medical floors - Continue IV Zosyn - Blood culture - Urine culture - Monitor clinical status closely - Monitor urine output -Prediabetes, monitor blood sugars - Full code - Lovenox for DVT prophylaxis PDMP PDMP Reviewed: Not Reviewed Attestations 2 Medical Necessity Statement*: Patient requires hospitalization for acute pyelonephritis, with UTI, concern for prostatitis Diagnoses Rupture of right biceps tendon, subsequent encounter S46.211D Encounter type: subsequent encounter Laterality: right Pyelonephritis N12 Urinary tract infection N39.0 Sepsis A41.9 Prostatitis N41.9
--- NOTE | 2024-09-10 18:18 | PC.NURSE ---
this nurse attempted to get iv access to the right hand. this nurse had placement and upon flushing pt moved and the iv infiltrated. pt states he is refusing for another try at iv site at this time. Yordy made aware of refusal. this nurse will pass off to oncoming nurse.
[2024-09-11] VITALS: BP 145/83; PULSE 77; RESP 17; TEMP 36.7; O2SAT 95
[2024-09-11 03:06] VITALS: RESP 16
[2024-09-11] MEDS: oxyCODONE 5 mg IR Tab/Cap PO (03:06)
[2024-09-11 04:00] VITALS: BP 135/96; PULSE 77; RESP 17; TEMP 37.2; O2SAT 95
[2024-09-11] MEDS: piperacillin-tazobactam 3.375 GM in sodium chloride 0.9% (plus) 50 ML IV (05:14)
[2024-09-11 06:04] LABS: Hematocrit 36.4 % (37-53); Hemoglobin 11.90 g/dL (11.27-16.99); Mean Corpuscular HGB Conc 32.7 g/dL (30-55); Mean Corpuscular Hemoglobin 29.5 pg (27-33); Mean Corpuscular Volume 90.1 fl (82-101); Nucleated Red Blood Cells % 0 %; Platelet Count 232 10^3/cmm (157-399); Red Blood Count 4.04 10^6/uL (3.85-5.65); White Blood Count 9.47 10^3/uL (3.29-11.43)
[2024-09-11 06:23] LABS: Alanine Aminotransferase 12 U/L (0-41); Albumin Level 3.2 g/dL (3.5-5.2); Alkaline Phosphatase 67 U/L (40-130); Anion Gap 17.6 (5-19); Aspartate Amino Transferase 15 U/L (0-40); Blood Urea Nitrogen 11 mg/dL (6-20); Calcium 8.9 mg/dL (8.5-10.5); Carbon Dioxide 25 mmol/L (22-29); Chloride 99 mmol/L (98-107); Creatinine Clr Calc Pharmacy 190.0516; Globulin 3.9 g/dL (1.3-4.6); Glucose 105 mg/dL (65-115); Osmolality Calculated 286 mOsm/kg (285-295); Potassium 3.6 mmol/L (3.5-5.1); Sodium 138 mmol/L (136-145); Total Protein 7.1 g/dL (6.6-8.7)
[2024-09-11 07:17] VITALS: BP 131/80; PULSE 63; RESP 19; TEMP 36.6; O2SAT 95
[2024-09-11 10:35] VITALS: BP 121/77; PULSE 76; RESP 19; TEMP 36.8; O2SAT 94
--- NOTE | 2024-09-11 11:20 | P.DS_ITS ---
Discharge Providers Date of Admission: 09/08/24 20:41 Date of Discharge: September 11, 2024 Attending Provider at Admission: Abdullahi Weiner MD Attending Provider at Discharge: Scot Scales MD Primary Care Provider: Lyubov Diaz MD Diagnoses at Discharge Discharge Diagnosis 1. Rupture of right biceps tendon, subsequent encounter: 2. Pyelonephritis: 3. Urinary tract infection: 4. Sepsis: 5. Prostatitis: Reason for Visit Reason for Visit: trouble urinating, blood in urine Hospital Course Hospital Course This is a 59-year-old male with past medical history of hypertension, obesity, chronic opiate use, recent history of right distal bicep tendon tear for which he underwent repair on August 26, who presents [facility] due to increased urinary frequency, dysuria Patient was admitted to [facility] acute pyelonephritis, with UTI with concerns for prostatitis, with concerns for sepsis CT scan abdomen pelvis CT/CT abdomen pelvis w con* [id number] IMPRESSION: 1. Urinary bladder wall thickening likely due to nondistention, please correlate for cystitis. 2. Edema seen about the prostate gland, please correlate for prostatitis. 3. Prominent fluid in the stomach and small bowel, please correlate for a gastroenteritis. 4. Prostate gland enlarged. 5. Perinephric edema bilaterally likely reflecting renal insufficiency, please correlate for pyelonephritis. 6. Bibasilar atelectasis. 7. Hepatic steatosis. 8. Diverticulosis without diverticulitis. # Was monitored in the ICU received broad-spectrum antibiotic therapy, IV hydration, overall clinically improved, moved to medical floors - So far remains afebrile, blood cultures so far no growth, urine cultures growing pansensitive E. coli - Due to concerns for prostatitis we will discharge patient on 2 weeks of ciprofloxacin, with a follow-up with primary care provider as outpatient, follow-up with urology, and will be discharged on Flomax - Patient was advised if he were to have any fevers, chills, flank pain, dysuria to come back to the emergency room Physical Exam Const: COMMON NORMALS: no acute distress and patient oriented x3 Resp: COMMON NORMALS: normal respiratory effort, No retractions, No use of accessory muscles and clear to auscultation bilaterally AUSCULTATION: clear to auscultation bilaterally Cardio: COMMON NORMALS: regular rate, regular rhythm, S1 normal heart sound p resent and S2 normal heart sound present RATE: regular rate RHYTHM: regular rhythm HEART SOUNDS: S1 normal heart sound present and S2 normal heart sound present GI: COMMON NORMALS: Normal to inspection, nondistended, normoactive bowel sounds present and non-tender Extremity: COMMON NORMALS: no pedal edema Neuro: COMMON NORMALS: patient oriented x3 Psych: COMMON NORMALS: mental status grossly normal Discharge Data Studies Completed and Pending Completed Studies During Hospitalization Category Date Time Status CT abdomen pelvis w con* [id number] Stat Cat Scan 09/08/24 19:[address] elbow RT w con [id number] Stat Cat Scan 09/08/24 19:20 Completed Pending at discharge Category Date Time Status Blood Culture Stat Lab 09/08/24 18:20 Results Complete Blood Count w/Auto AM LABS Lab 09/12/24 04:00 Ordered Comprehensive Metabolic Panel AM LABS Lab 09/12/24 04:00 Ordered Radiology Impressions Abdomen/Pelvis CT 09/08/24 19:07 IMPRESSION: 1. Urinary bladder wall thickening likely due to nondistention, please correlate for cystitis. 2. Edema seen about the prostate gland, please correlate for prostatitis. 3. Prominent fluid in the stomach and small bowel, please correlate for a gastroenteritis. 4. Prostate gland enlarged. 5. Perinephric edema bilaterally likely reflecting renal insufficiency, please correlate for pyelonephritis. 6. Bibasilar atelectasis. 7. Hepatic steatosis. 8. Diverticulosis without diverticulitis. Elbow CT 09/08/24 19:20 IMPRESSION: Surgical fixation device in the region of the proximal radius likely related to history of biceps tendon repair. Minimal surrounding edema of the musculature is suspected which may be postsurgical in nature, infection is not excluded based on imaging alone, please correlate clinically, MRI could better characterize the soft tissues. Laboratory Results WBC 9.47 10^3/uL (3.29-11.43) 09/11/24 05:18 RBC 4.04 10^6/uL (3.85-5.65) 09/11/24 05:18 Hgb 11.90 g/dL (11.27-16.99) 09/11/24 05:18 Hct 36.4 % (37-53) L 09/11/24 05:18 MCV 90.1 fl (82-101) 09/11/24 05:18 MCH 29.5 pg (27-33) 09/11/24 05:18 MCHC 32.7 g/dL (30-55) 09/11/24 05:18 RDW 13.2 % (12.1-15.1) 09/11/24 05:18 Plt Count 232 10^3/cmm (157-399) 09/11/24 05:18 MPV 9.6 fL (7.4-10.4) 09/11/24 05:18 Neut % (Auto) 64.3 % 09/11/24 05:18 Lymph % (Auto) 20.4 % 09/11/24 05:18 [place] % (Auto) 12.2 % 09/11/24 05:18 Eos % (Auto) 2.0 % 09/11/24 05:18 Baso % (Auto) 0.3 % 09/11/24 05:18 Neut # (Auto) 6.08 10^3/uL (1.8-7.7) 09/11/24 05:18 Lymph # (Auto) 1.9 10^3/uL (0.8-4.8) 09/11/24 05:18 [place] # (Auto) 1.2 10^3/uL (0.2-0.9) H 09/11/24 05:18 Eos # (Auto) 0.2 10^3/uL (0.0-0.8) 09/11/24 05:18 Baso # (Auto) 0.0 10^3/uL (0.0-0.1) 09/11/24 05:18 Nucleated RBC % (auto) 0 % 09/11/24 05:18 Nucleated RBCs # 0.0 /100WBC 09/11/24 05:18 Sodium 138 mmol/L (136-145) 09/11/24 05:18 Potassium 3.6 mmol/L (3.5-5.1) 09/11/24 05:18 Chloride 99 mmol/L (98-107) 09/11/24 05:18 Carbon Dioxide 25 mmol/L (22-29) 09/11/24 05:18 Anion Gap 17.6 (5-19) 09/11/24 05:18 BUN 11 mg/dL (6-20) 09/11/24 05:18 Creatinine 0.6 mg/dL (0.7-1.2) L 09/11/24 05:18 GFR Calculation 138.9 mL/min (90-130) H 09/11/24 05:18 Glucose 105 mg/dL (65-115) 09/11/24 05:18 Calculated Osmolality 286 mOsm/kg (285-295) 09/11/24 05:18 Lactic Acid 1.1 mmol/L (0.5-2.2) 09/08/24 16:47 Calcium 8.9 mg/dL (8.5-10.5) 09/11/24 05:18 Magnesium 1.9 mg/dL (1.7-2.3) 09/09/24 03:52 Total Bilirubin 0.4 mg/dL (0.15-1.2) 09/11/24 05:18 AST 15 U/L (0-40) 09/11/24 05:18 ALT 12 U/L (0-41) 09/11/24 05:18 Alkaline Phosphatase 67 U/L (40-130) 09/11/24 05:18 Total Protein 7.1 g/dL (6.6-8.7) 09/11/24 05:18 Albumin 3.2 g/dL (3.5-5.2) L 09/11/24 05:18 Globulin 3.9 g/dL (1.3-4.6) 09/11/24 05:18 Lipase 16 U/L (13-60) 09/08/24 16:47 Procalcitonin 0.29 ng/mL (0-0.5) 09/08/24 16:47 Urine Color [place] (Yellow) A 09/08/24 18:05 Urine Appearance Turbid (CLEAR) A 09/08/24 18:05 Urine pH 5.5 (5-7) 09/08/24 18:05 Ur Specific [place] 1.027 (1.005-1.030) 09/08/24 18:05 Urine Protein 3+ (Negative) A 09/08/24 18:05 Urine Glucose (UA) Negative (Normal) 09/08/24 18:05 Urine Ketones Trace (Negative) 09/08/24 18:05 Urine Blood 3+ (Negative) A 09/08/24 18:05 Urine Nitrate Positive (Negative) A 09/08/24 18:05 Urine Bilirubin 2+ (Negative) H 09/08/24 18:05 Urine Urobilinogen 1.0 mg/dL (Negative) 09/08/24 18:05 Ur Leukocyte Esterase 3+ (Negative) A 09/08/24 18:05 Urine RBC >100 /hpf (0-2) H 09/08/24 18:05 Urine WBC >100 /hpf (0-5) H 09/08/24 18:05 Ur Squamous Epith Cells 0-5 /hpf (0-5) 09/08/24 18:05 Amorphous Sediment Not Reportable 09/08/24 18:05 Urine Bacteria Trace /hpf (NONE) 09/08/24 18:05 Hyaline Casts 3.85 /lpf 09/08/24 18:05 C. trachomatis (PCR) Not detected (Negative) 09/09/24 06:22 C.trachomatis RNA (TMA) Cancelled 09/09/24 06:22 Chlamydia/GC Comment Cancelled 09/09/24 06:22 N. gonorrhoeae (PCR) Not detected (Negative) 09/09/24 06:22 N.gonorrhoeae RNA (TMA) Cancelled 09/09/24 06:22 Vitals Last Vital Signs Temp 98.2 F 09/11/24 10:35 Pulse 76 09/11/24 10:35 Resp 19 H 09/11/24 10:35 BP 121/77 09/11/24 10:35 Pulse Ox 94 09/11/24 10:35 O2 Del Method Room Air 09/11/24 10:35 Discharge Plan Discharge Patient Disposition: Home Condition: Stable Prescriptions: New ciprofloxacin HCl 500 mg tablet 500 mg PO BID 14 Days Qty: 28 0RF Probiotic 3 billion cell capsule 3,000 mmu cells PO DAILY 14 Days Qty: 14 0RF Rx Instructions: administer with a meal tamsulosin [Flomax] 0.4 mg capsule 0.4 mg PO .nightly 30 Days Qty: 30 0RF Continued testosterone 20.25 mg/1.25 gram (1.62 %) gel in metered-dose pump 1 pump topical DAILY Qty: 75 3RF Rx Instructions: apply 1 pump amount over max area of ONE upper arm and shoulder hydrocodone-acetaminophen 10-325 mg tablet 1 tab PO Q4H MDD 6 PRN (Reason: pain) 7 Days Qty: 42 0RF aspirin [Dustin Aspirin] 325 mg Tablet 1,270 mg PO BID PRN (Reason: Fever Or Pain) ibuprofen [Advil] 200 mg Tablet 800 mg PO Q6H PRN (Reason: Fever Or Pain) garlic 1,000 mg Capsule 1,000 mg PO DAILY cholecalciferol (vitamin D3) [Vitamin D3] 125 mcg (5,000 unit) Tablet 125 mcg PO DAILY Nattokinase 50 mg Capsule 50 mg PO DAILY coenzyme Q10 [Co Q-10] 400 mg Capsule 400 mg PO DAILY Fl[employer]ting [employer] OK for DC: Orthopedics Discharge Order = DC NOW: Discharge Order (Routine); Ordered 09/11/24 Ordered By: Scot Scales Referrals: Aleks Syed MD [Referring, Urology] - 2 weeks Referral Note: prostatitis We have notified your physician's clinic of the need for a follow-up appointment to be scheduled. If you have not heard from them within the next 2 business days, please call them directly. Lyubov Diaz MD [Primary Care Provider, [facility]] - 09/16/24 11:15 am Discharge Diet: Cardiac Discharge Activity: Resume usual activity Patient Instructions: Ciprofloxacin (By mouth), Tamsulosin (By mouth), Probiotic (By mouth), Prostatitis (GEN), Urinary Tract Infection in Men (GEN), Opioid Safety, Patient Portal & Isabell Instructions Activity Restrictions/Additional Instructions: - Please hydrate well drink plenty electrolyte balance fluids - Please follow-up with your primary care provider in 1 week - Please follow-up with urology in 2 to 4 weeks - Please take antibiotics for the next 2 weeks - If you have fevers, chills, flank pain go to the emergency room - You have prediabetes, here A1c 6.1 please follow-up with primary care provider about weight loss strategies or trial of medication such as metformin or Ozempic - Please follow-up with your primary care provider for blood pressure check Discharge Attestations Time Spent in Discharge Care*: greater than 30 min Quality Metrics Clinical Quality Measures [ No reported AMI, CVA or VTE this stay] Coding Level of Care Code 48301 Total time (in minutes) for Discharge: 45 Diagnoses Rupture of right biceps tendon, subsequent encounter S46.211D Encounter type: subsequent encounter Laterality: right Pyelonephritis N12 Urinary tract infection N39.0 Sepsis A41.9 Prostatitis N41.9
== END 2024-09-11 12:43 | disposition home or self-care (01) | DRG 872 ==
LOC: ER 20:30 → ICU 22:01 → MEDSURG 09-10 10:03
PROVIDERS: Emergency Medicine; Student in an Organized Health Care Education/Training Program; Admitting Provider Student in an Organized Health Care Education/Training Program; Emergency Provider Emergency Medicine; PCP Family Medicine; Visit Provider Family Medicine
DX: A41.9 Sepsis, unspecified organism (principal); N12 Tubulo-interstitial nephritis, not specified as acute or chronic; Z68.42 Body mass index [BMI] 45.0-49.9, adult; X58.XXXD Exposure to other specified factors, subsequent encounter; N41.9 Inflammatory disease of prostate, unspecified; I10 Essential (primary) hypertension; E66.9 Obesity, unspecified; G89.4 Chronic pain syndrome; K76.0 Fatty (change of) liver, not elsewhere classified; F17.210 Nicotine dependence, cigarettes, uncomplicated; F17.220 Nicotine dependence, chewing tobacco, uncomplicated; S46.211D Strain of muscle, fascia and tendon of other parts of biceps, right arm, subsequent encounter; Z79.891 Long term (current) use of opiate analgesic; Z79.82 Long term (current) use of aspirin
CPT/HCPCS: 36415; 73201; 74177; 80053; 81001; 83605; 83690; 83735; 84145; 85025; 87040; 87077; 87086; 87186; 87491; 87591; 96365; 96372; 96374; 96375; 96376; 99285; J0131; J0692; J1171; J1650; J1885; J2270; J2405; J2543; J7030; J9999

== ENCOUNTER → 2024-11-05 15:05 | Outpatient (BNVA) | payer BC, MEDICAID, SELFPAY | PROVIDERS: PCP Family Medicine; Visit Provider Family Medicine | DX: E29.1 Testicular hypofunction (principal); E34.9 Endocrine disorder, unspecified | CPT/HCPCS: 84402; 84403 ==

== ENCOUNTER 2024-11-06 14:39 | Outpatient (CLI) | payer BC, MEDICAID, SELFPAY ==
--- NOTE | 2024-11-06 14:44 | MR_ITS ---
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 TECHNIQUE: Sagittal and axial multisequence imaging is submitted. Mild LEFT curvature lumbar spine. No acute fractures or marrow edema. Chronic endplate changes from L3-L5. Disc spaces are moderately narrowed at L3-4, L4-5 and L5-S1. Hypertrophic osteophytes at all levels. Conus terminates normally at L1-2 disc level. L1-L2: Disc bulging with a LEFT foraminal disc protrusion and annular fissure. Mild bilateral facet arthritis. There is mild bilateral subarticular recess encroachment, LEFT greater than RIGHT and mild LEFT foraminal stenosis. L2-L3: Diffuse annular disc bulging with a moderate central disc protrusion effacing and deforming the thecal sac. Disc extends into the subarticular recesses with small bilateral disc osteophyte complexes. Moderate to severe central and bilateral subarticular recess stenosis with mild to moderate fora murray stenosis. L3-L4: Diffuse annular disc bulging, osteophytic ridging. Large central disc osteophyte complex effacing ventral CSF. Disc extends into the subarticular recesses with contact on the traversing L4 nerve roots. Bilateral foraminal disc osteophyte complexes. Moderate to severe RIGHT and moderate LEFT foraminal stenosis. Moderate to severe central and subarticular recess stenosis. L4-L5: Diffuse annular disc bulging, osteophytic ridging and facet arthritis. Central disc protrusion effacing ventral CSF. Additional bilateral foraminal disc protrusions. Moderate to severe central and LEFT foraminal stenosis. Severe RIGHT foraminal stenosis. L5-S1: Mild disc bulging and osteophytic ridging. Moderate to severe bilateral foraminal stenosis. Paravertebral soft tissues are negative. MR/MR lumbar spine wo con* [id number] IMPRESSION: 1. Multilevel moderate to severe stenoses as described above. Moderate to sudarshan re bilateral facet disease, most significant from L3-4 to L5-S1. 2. L2-3: Moderate size central disc protrusion. Moderate to severe central, bi lateral subarticular recess stenosis and mild to moderate foraminal stenosis. 3. L3-4: Large central disc osteophyte complex. Moderate to severe central, sifuentes barticular recess and foraminal stenosis. RIGHT foraminal stenosis greater than the LEFT. 4. L4-5: Central disc protrusion. Additional disc osteophyte complexes in the foramina. Moderate to severe central and LEFT foraminal stenosis. Severe RIGHT foraminal stenosis. 5. L5-S1: Moderate to severe bilateral foraminal stenosis. 6. L1-2: LEFT foraminal disc protrusion. There is mild subarticular recess enc roachment and mild LEFT foraminal stenosis.
--- NOTE | 2024-11-06 16:23 | XRR_ITS ---
PROCEDURE INFORMATION: Exam: XR Lumbosacral Spine Exam date and time: 11/06/2024 4:29 PM Age: 59 years old Clinical indication: Low back pain; Additional info: Spondylosis of lumbosacral region without myelopathy or radi TECHNIQUE: Imaging protocol: Radiologic exam of the lumbosacral spine. Views: 6 or more views. Including flexion and extension views. COMPARISON: MR lumbar spine wo con* [id number] 11/06/2024 3:13 PM FINDINGS: Bones/joints: No acute fracture. Vertebral body heights are maintained. Loss of disc height at L3-L4, L4-L5, and L5-S1. Small posterior osteophytes at L4-L5 and L5-S1. Moderate bilateral facet arthropathy at L4-L5 and L5-S1. Normal alignment of the vertebral bodies, without spondylolisthesis on flexion and extension views. No suspicious osseous lesion is identified. The sacrum and sacroiliac joints are unremarkable. Soft tissues: Unremarkable. Vasculature: Atherosclerotic calcifications of the abdominal aorta. XR/XR lumbar spine 6V w f/e [id number] IMPRESSION: 1. No lumbar vertebral compression fracture or spondylolisthesis. 2. Chronic degenerative changes, better evaluated on MRI spine from the same date. 3. Unremarkable sacrum and sacroiliac joints.
== END 2024-11-06 14:40 | disposition home or self-care (01) ==
PROVIDERS: PCP Family Medicine; Visit Provider Student in an Organized Health Care Education/Training Program
DX: M47.817 Spondylosis without myelopathy or radiculopathy, lumbosacral region (principal)
CPT/HCPCS: 72114; 72148

== ENCOUNTER 2025-02-19 11:35 | Emergency (ER) | payer BC, MEDICAID, SELFPAY ==
--- OUTSIDE RECORDS SUMMARY | 2025-01-14 08:20 | XMS_ITS ---
Author Organization [facility] Address [address] [place] [id number] Care Team Providers Care Advertising Consultant Name Role Phone Lyubov Diaz MD Primary Care Provider Unavail johnny ZelayaMaria L benavides Unavailable [phone] Dione Ramirez Unavailable REASON FOR VISIT 2 month f/u Social History Tobacco Use: Social History Observation Description Date Details (start date - stop date) Never Smoker NA - NA Social History Tobacco Use: Social Info Question Answer Notes Tobacco Control (Standard) Tobacco use: Nonsmoker Additional Details Category Social Info Options Details Miscellaneous: Sexually active: no Sexual abuse: no Drugs/Alcohol: Do you smoke marijuana? De nies Do you drink alcohol? 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 and Lumbosacral radiculopathy M54.17 Assessments Encounter Date Diagnosis (ICD Code) Assessment Notes Treatment Notes Treatment Clinical Notes Section Notes 01/14/2025 Chronic pain syndrome (ICD-10 - G89.4) 01/14/2025 Lumbosacral spondylosis with radiculopathy (ICD-10 - M47.27) 01/14/2025 Myalgia (ICD-10 - M79.10) 01/14/2025 Meralgia paresthetica of right side (ICD-10 - G57.11) 01/14/2025 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 Multilevel moderate to severe stenoses as described. Moderate to severe bilateral facet disease, most significant from L3-4 and L5-S1. 2. L2-3: Moderate size central disc protrusion. Moderate to severe central, bilateral subarticular recess stenosis and mild to moderate foraminal stenosis. 3. L3-4 Large central disc osteophyte complex. Moderate to severe central, subarticular recess and foraminal stenosis. RIGHT foraminal stenosis greater than the LEFT. 4. L4-5 Central disc protrusion. Additional disc osteophyte complexes in the foramina. Moderate to severe central and LEFT foraminal stenosis. Severe RIGHT foraminal stenosis. 5. L5-S1: Moderate to severe bilateral foraminal stenosis. 6. L1-2 LEFT foraminal disc protrusion. There is mild subarticular recess encroachment and mild LEFT foraminal stenosis. 11/15/2024 The patient presents today for 1 month follow-up.He is currently prescribed hydrocodone 10/325 3/day which is working reasonably well for him. Last UDS was consistent. UDS at [id number] today is consistent. Pill count is accurate today. PDMP was reviewed and found to be compliant with care. Original HPI (10/15/24, Dr. Rodriguez): Patient presents today to establish care. He is being referred by his primary care physician for long standing low back pain and left-sided radicular symptoms that started on the job many years ago after he was carrying a bucket of paint up stairs and felt pain in his lower back. His worst pain is 10/10, least pain is 4/10, and pain on average is 8/10. He describes his pain as throbbing, shooting, stabbing, sharp, achy, pin/needles sensation, numb, burning, and tinging in feet. Worsening factors include movement, standing, walking, lifting, lying flat, bending, and twisting. Alleviating factors are medications. No pertinent mental health history in the past. He saw Dr. Phill Cunha at [facility]. He has never been fired from another clinic and has never had any injections. He denies any physical therapy, trials of Tens devices, or chiropractic therapy. He is currently taking Motrin 1800 mg once a day and Narco 10 mg up to three tablets per day. He is not a current smoker. Surgical history includes bicep surgery in August 2024. Denies any family history or medical history pertinent for kidney infection or sepsis. Denies any bowel or bladder incontinence. Pain Details Pain Location : Quality : Severity of pain at its worst : Severity of pain at its best : Severity of average pain : Severity of pain on medication : When did you last take your pain medicin e : Medication Details Do you have a lock b ox or safe place for medication away from minors and/or others? Yes Do you have any leftover pain medication building up at your house? No Do you understand that pain medication c an be addicting and can cause overdose? Yes Do you feel you can REDUCE the amount of medication you take today? No Opioid Assessment Tools Pill Count : Last Urine Drug Screen 11/15/24 [facility] [place] [facility] [place] PDMP, found to be consistent with treatment history, reviewed today Progress Notes * Skip ARMIJO EDOB:1965 (59 yo M)Acc No.[id number]:01/14/2025 Progress Notes Patient: Lili sergoSkip Provider: Mary Ramirez MD :1965 A ge:59 Y S ex:Male Date:01/14/2025 Address:[address] [place] [address] [facility]:Lyubov Diaz MD Subjective: * Chief Complaints: * 2 month f/u * HPI: P ainerissa Details: Pain Location : . Quality : . Severity of pain at its worst : . Severity of pain at its best : . Severity of pain on medication : . Severity of average pain : . When did you last take your pain medicine : . M edication Details: Do you have a lock box or safe place for medication away from minors and/or others? Y es. Do you have any leftover pain medication building up at your house? N o. Do you understand that pain medication can be addicting and can cause overdose? Y es. Do you feel you can REDUCE the amount of medication you take today? N o. O pioid Assessment Tools: Pill Count : . Last Urine Drug Screen 0 11/15/24 [facility]. [place] [facility] [place] PDMP, found to be consistent with treatment history, reviewed today. Melissa lee Note: - - - - - - - - - - - - - - - - - - - - - - - - - - - - - - - - - - - - - - - - - Consent for chronic opioid therapy/clinic policies: 10/09/24 JAMEL: 72% 10/15/24 SOAPP-R: 7 Physical Therapy: Alex refer again in 2024 as well as provided HEP for low back Bowel/bladder incontinence: Denies - - - - - - - - - - - - - - - - - - - - - - - - - - - - - - - - - - - - - - - - -. Interventions: Bicep Surgery August 2024 Pertinent Imaging: MRI Lumbar Spine Noncontrast 1. Multilevel moderate to severe stenoses as described. Moderate to severe bilateral facet disease, most significant from L3-4 and L5-S1. 2. L2-3: Moderate size central disc protrusion. Moderate to severe central, bilateral subarticular recess stenosis and mild to moderate foraminal stenosis. 3. L3-4 Large central disc osteophyte complex. Moderate to severe central, subarticular recess and foraminal stenosis. RIGHT foraminal stenosis greater than the LEFT. 4. L4-5 Central disc protrusion. Additional disc osteophyte complexes in the foramina. Moderate to severe central and LEFT foraminal stenosis. Severe RIGHT foraminal stenosis. 5. L5-S1: Moderate to severe bilateral foraminal stenosis. 6. L1-2 LEFT foraminal disc protrusion. There is mild subarticular recess encroachment and mild LEFT foraminal stenosis. 11/15/2024 The patient presents today for 1 month follow-up.He is currently prescribed hydrocodone 10/325 3/day which is working reasonably well for him. Last UDS was consistent. UDS at [id number] today is consistent. Pill count is accurate today. PDMP was reviewed and found to be compliant with care. Original HPI (10/15/24, Dr. Rodriguez): Patient presents today to establish care. He is being referred by his primary care physician for long standing low back pain and left-sided radicular symptoms that started on the job many years ago after he was carrying a bucket of paint up stairs and felt pain in his lower back. His worst pain is 10/10, least pain is 4/10, and pain on average is 8/10. He describes his pain as throbbing, shooting, stabbing, sharp, achy, pin/needles sensation, numb, burning, and tinging in feet. Worsening factors include movement, standing, walking, lifting, lying flat, bending, and twisting. Alleviating factors are medications. No pertinent mental health history in the past. He saw Dr[facility] at [facility]. He has never been fired from another clinic and has never had any injections. He denies any physical therapy, trials of Tens devices, or chiropractic therapy. He is currently taking Motrin 1800 mg once a day and Narco 10 mg up to three tablets per day. He is not a current smoker. Surgical history includes bicep surgery in August 2024. Denies any family history or medical history pertinent for kidney infection or sepsis. Denies any bowel or bladder incontinence. * Medical History: Kidney infection Sepsis * Surgical History: appendectomy bicep surgery * Social History: T obacco Use: T obacco Control (Standard) T obacco use: N onsmoker D rugs/Alcohol: D o you smoke marijuana?: Denies. Do you drink alcohol?: No. M iscellaneous: S exual abuse: no. Sexually active: no. Assessment: * Assessment: 1. C hronic pain syndrome - G89.4 (Primary) 2 . L umbosacral spondylosis with radiculopathy - M47.27 3 . M yalgia - M79.10 4 . M eralgia paresthetica of right side - G57.11 5 . L concetta term (current) use of opiate analgesic - Z79.891 6 . S pondylosis of lumbosacral region without myelopathy or radiculopathy - M47.817 7 . L umbosacral radiculopathy - M54.17 Billing Information: * Procedure Codes: Care Plan Details* * Electronic signature of Albertina Ramirez MD on 02/19/2025 at 11:41 AM CASE FITTER Sign off status: Pending * Provider: Mary Ramirez MD Date: 03/16/2024 Generated for Dionna barbosa/Veronica/Guillaumeitting on: 04/22/2024 11:41 AM CASE FITTER
[2025-02-19 11:36] VITALS: BP 157/84; PULSE 83; TEMP 36.6; O2SAT 98
--- OUTSIDE RECORDS SUMMARY | 2025-02-19 11:41 | XMS_ITS | Patient Health Record ---
Author Organization [facility] Address [address] [place] [id number] Care Team Providers Care Internal Sales Engineer Name Role Phone Lyubov Diaz MD Primary Care Provider Unavail johnny ZelayaMaria L benavides Unavailable [phone] JamesDione Unavailable [phone] JuanitaRodríguez ortega Unavailable [phone] Allergies Allergen (clinical drug ingredient) Drug/Non Drug Allergy documented on EMR Reaction Allergy Type Onset Date Status Substance with sulfonamide structure and antibacterial mechanism of action (substance) Sulfa Antibiotics Unknown Drug Allergy Active Results Component Value Reference Range Flag Notes Urine Drug Screen (cup read) - [id number] Reviewed date:11/15/2024 03:21:24 PM Interpretation: Performing Lab: Notes/Report: OPI + OXY + Urine Drug Screen (cup read) - [id number] Reviewed date:10/15/2024 11:44:21 AM Interpretation: Performing Lab: Notes/Report: OPI + OXY + Urine Confirmation Panel (in strument) - [id number] Reviewed date:10/22/2024 02:49:10 PM Interpretation: Performing Lab: Notes/Report: 6-Acetylmorphine 0 <6 ng/mL N This maria a t was developed and its performance characteristics determined by [facility]. It has not been cleared or approved by the U.S. Food and Drug Administration. 7-Aminoclonazepam 0 <60 ng/mL N This te st was developed and its performance characteristics determined by [facility]. It has not been cleared or approved by the U.S. Food and Drug Administration. Alprazolam 0 <60 ng/mL N This test was developed and its performance characteristics determined by [facility]. It has not been cleared or approved by the U.S. Food and Drug Administration. Amphetamine 0 <75 ng/mL N This test was developed and its performance characteristics determined by [facility]. It has not been cleared or approved by the U.S. Food and Drug Administration. aOH-Alprazolam 0 <60 ng/mL N This test was developed and its performance characteristics determined by [facility]. It has not been cleared or approved by the U.S. Food and Drug Administration. Buprenorphine 0.0 <7.5 ng/mL N This test w as developed and its performance characteristics determined by [facility]. It has not been cleared or approved by the U.S. Food and Drug Administration. Norbuprenorphine 0.0 <37.5 ng/mL N This te st was developed and its performance characteristics determined by [facility]. It has not been cleared or approved by the U.S. Food and Drug Administration. Carisoprodol 0 <75 ng/mL N This test wa s developed and its performance characteristics determined by [facility]. It has not been cleared or approved by the U.S. Food and Drug Administration. Codeine 0 <75 ng/mL N This test was developed and its performance characteristics determined by [facility]. It has not been cleared or approved by the U.S. Food and Drug Administration. EDDP 0 <75 ng/mL N This test was developed and its performance characteristics determined by [facility]. It has not been cleared or approved by the U.S. Food and Drug Administration. Fentanyl 0 <6 ng/mL N This test was developed and its performance characteristics determined by [facility]. It has not been cleared or approved by the U.S. Food and Drug Administration. Hydrocodone >5000 <75 ng/mL > This test was developed and its performance characteristics determined by [facility]. It has not been cleared or approved by the U.S. Food and Drug Administration. Hydromorphone 3828 <75 ng/mL H This test w as developed and its performance characteristics determined by [facility]. It has not been cleared or approved by the U.S. Food and Drug Administration. Lorazepam 0 <60 ng/mL N This test was developed and its performance characteristics determined by [facility]. It has not been cleared or approved by the U.S. Food and Drug Administration. MDMA 0 <75 ng/mL N This test was developed and its performance characteristics determined by [facility]. It has not been cleared or approved by the U.S. Food and Drug Administration. Meperidine 0.0 <37.5 ng/mL N This test was developed and its performance characteristics determined by [facility]. It has not been cleared or approved by the U.S. Food and Drug Administration. Meprobamate 0 <75 ng/mL N This test was developed and its performance characteristics determined by [facility]. It has not been cleared or approved by the U.S. Food and Drug Administration. Methamphetamine 0 <75 ng/mL N This test was developed and its performance characteristics determined by [facility]. It has not been cleared or approved by the U.S. Food and Drug Administration. Methadone 0 <75 ng/mL N This test was developed and its performance characteristics determined by [facility]. It has not been cleared or approved by the U.S. Food and Drug Administration. Morphine 0 <75 ng/mL N This test was developed and its performance characteristics determined by [facility]. It has not been cleared or approved by the U.S. Food and Drug Administration. Nordiazepam 0 <60 ng/mL N This test was developed and its performance characteristics determined by [facility]. It has not been cleared or approved by the U.S. Food and Drug Administration. Norfentanyl 0 <6 ng/mL N This test was developed and its performance characteristics determined by [facility]. It has not been cleared or approved by the U.S. Food and Drug Administration. Normeperidine 0.0 <37.5 ng/mL N This test was developed and its performance characteristics determined by [facility]. It has not been cleared or approved by the U.S. Food and Drug Administration. O-desmethyltramadol 0 <75 ng/mL N This test was developed and its performance characteristics determined by [facility]. It has not been cleared or approved by the U.S. Food and Drug Administration. Oxazepam 0 <60 ng/mL N This test was developed and its performance characteristics determined by [facility]. It has not been cleared or approved by the U.S. Food and Drug Administration. Oxycodone 0.0 <37.5 ng/mL N This test was developed and its performance characteristics determined by [facility]. It has not been cleared or approved by the U.S. Food and Drug Administration. Oxymorphone 0 <75 ng/mL N This test was developed and its performance characteristics determined by [facility]. It has not been cleared or approved by the U.S. Food and Drug Administration. Phencyclidine 0.0 <7.5 ng/mL N This test w as developed and its performance characteristics determined by [facility]. It has not been cleared or approved by the U.S. Food and Drug Administration. Tapentadol 0.0 <37.5 ng/mL N This test was developed and its performance characteristics determined by [facility]. It has not been cleared or approved by the U.S. Food and Drug Administration. Temazepam 0 <60 ng/mL N This test was developed and its performance characteristics determined by [facility]. It has not been cleared or approved by the U.S. Food and Drug Administration. Tramadol 3 <75 ng/mL N This test was developed and its performance characteristics determined by [facility]. It has not been cleared or approved by the U.S. Food and Drug Administration. Norhydrocodone >5000 <75 ng/mL > This test was developed and its performance characteristics determined by [facility]. It has not been cleared or approved by the U.S. Food and Drug Administration. Noroxycodone 0 <38 ng/mL N This test wa s developed and its performance characteristics determined by [facility]. It has not been cleared or approved by the U.S. Food and Drug Administration. Pregabalin 0 <225 ng/mL N This test was developed and its performance characteristics determined by [facility]. It has not been cleared or approved by the U.S. Food and Drug Administration. Gabapentin 0 <225 ng/mL N This test was developed and its performance characteristics determined by [facility]. It has not been cleared or approved by the U.S. Food and Drug Administration. Benzoylecgonine 0.0 <37.5 ng/mL N This maria a t was developed and its performance characteristics determined by [facility]. It has not been cleared or approved by the U.S. Food and Drug Administration. 4-Hydroxy Xylazine 0 <25 ng/mL N This t est was developed and its performance characteristics determined by [facility]. It has not been cleared or approved by the U.S. Food and Drug Administration. Tox Results Reviewed date:10/22/2024 02:41:15 PM Interpretation: Performing Lab: Notes/Report: Urine Drug Screen (cup read) - [id number] Reviewed date:01/16/2025 05:43:20 PM Interpretation: Performing Lab: Notes/Report: OPI + OXY + Urine Confirmation Panel (in strument) - [id number] Reviewed date:01/21/2025 03:40:16 PM Interpretation: Performing Lab: Notes/Report: 6-Acetylmorphine 0 <6 ng/mL N This maria a t was developed and its performance characteristics determined by [facility]. It has not been cleared or approved by the U.S. Food and Drug Administration. 7-Aminoclonazepam 0 <60 ng/mL N This te st was developed and its performance characteristics determined by [facility]. It has not been cleared or approved by the U.S. Food and Drug Administration. Alprazolam 0 <60 ng/mL N This test was developed and its performance characteristics determined by [facility]. It has not been cleared or approved by the U.S. Food and Drug Administration. Amphetamine 0 <75 ng/mL N This test was developed and its performance characteristics determined by [facility]. It has not been cleared or approved by the U.S. Food and Drug Administration. aOH-Alprazolam 0 <60 ng/mL N This test was developed and its performance characteristics determined by [facility]. It has not been cleared or approved by the U.S. Food and Drug Administration. Buprenorphine 0.0 <7.5 ng/mL N This test w as developed and its performance characteristics determined by [facility]. It has not been cleared or approved by the U.S. Food and Drug Administration. Norbuprenorphine 0.0 <37.5 ng/mL N This te st was developed and its performance characteristics determined by [facility]. It has not been cleared or approved by the U.S. Food and Drug Administration. Carisoprodol 0 <75 ng/mL N This test wa s developed and its performance characteristics determined by [facility]. It has not been cleared or approved by the U.S. Food and Drug Administration. Codeine 0 <75 ng/mL N This test was developed and its performance characteristics determined by [facility]. It has not been cleared or approved by the U.S. Food and Drug Administration. EDDP 0 <75 ng/mL N This test was developed and its performance characteristics determined by [facility]. It has not been cleared or approved by the U.S. Food and Drug Administration. Fentanyl 0 <6 ng/mL N This test was developed and its performance characteristics determined by [facility]. It has not been cleared or approved by the U.S. Food and Drug Administration. Hydrocodone >5000 <75 ng/mL > This test was developed and its performance characteristics determined by [facility]. It has not been cleared or approved by the U.S. Food and Drug Administration. Hydromorphone 2126 <75 ng/mL H This test w as developed and its performance characteristics determined by [facility]. It has not been cleared or approved by the U.S. Food and Drug Administration. Lorazepam 0 <60 ng/mL N This test was developed and its performance characteristics determined by [facility]. It has not been cleared or approved by the U.S. Food and Drug Administration. MDMA 0 <75 ng/mL N This test was developed and its performance characteristics determined by [facility]. It has not been cleared or approved by the U.S. Food and Drug Administration. Meperidine 0.0 <37.5 ng/mL N This test was developed and its performance characteristics determined by [facility]. It has not been cleared or approved by the U.S. Food and Drug Administration. Meprobamate 0 <75 ng/mL N This test was developed and its performance characteristics determined by [facility]. It has not been cleared or approved by the U.S. Food and Drug Administration. Methamphetamine 0 <75 ng/mL N This test was developed and its performance characteristics determined by [facility]. It has not been cleared or approved by the U.S. Food and Drug Administration. Methadone 0 <75 ng/mL N This test was developed and its performance characteristics determined by [facility]. It has not been cleared or approved by the U.S. Food and Drug Administration. Morphine 0 <75 ng/mL N This test was developed and its performance characteristics determined by [facility]. It has not been cleared or approved by the U.S. Food and Drug Administration. Nordiazepam 0 <60 ng/mL N This test was developed and its performance characteristics determined by [facility]. It has not been cleared or approved by the U.S. Food and Drug Administration. Norfentanyl 0 <6 ng/mL N This test was developed and its performance characteristics determined by [facility]. It has not been cleared or approved by the U.S. Food and Drug Administration. Normeperidine 0.0 <37.5 ng/mL N This test was developed and its performance characteristics determined by [facility]. It has not been cleared or approved by the U.S. Food and Drug Administration. O-desmethyltramadol 0 <75 ng/mL N This test was developed and its performance characteristics determined by [facility]. It has not been cleared or approved by the U.S. Food and Drug Administration. Oxazepam 0 <60 ng/mL N This test was developed and its performance characteristics determined by [facility]. It has not been cleared or approved by the U.S. Food and Drug Administration. Oxycodone 0.0 <37.5 ng/mL N This test was developed and its performance characteristics determined by [facility]. It has not been cleared or approved by the U.S. Food and Drug Administration. Oxymorphone 0 <75 ng/mL N This test was developed and its performance characteristics determined by [facility]. It has not been cleared or approved by the U.S. Food and Drug Administration. Phencyclidine 0.0 <7.5 ng/mL N This test w as developed and its performance characteristics determined by [facility]. It has not been cleared or approved by the U.S. Food and Drug Administration. Tapentadol 0.0 <37.5 ng/mL N This test was developed and its performance characteristics determined by [facility]. It has not been cleared or approved by the U.S. Food and Drug Administration. Temazepam 0 <60 ng/mL N This test was developed and its performance characteristics determined by [facility]. It has not been cleared or approved by the U.S. Food and Drug Administration. Tramadol 0 <75 ng/mL N This test was developed and its performance characteristics determined by [facility]. It has not been cleared or approved by the U.S. Food and Drug Administration. Norhydrocodone >5000 <75 ng/mL > This test was developed and its performance characteristics determined by [facility]. It has not been cleared or approved by the U.S. Food and Drug Administration. Noroxycodone 0 <38 ng/mL N This test wa s developed and its performance characteristics determined by [facility]. It has not been cleared or approved by the U.S. Food and Drug Administration. Pregabalin 0 <225 ng/mL N This test was developed and its performance characteristics determined by [facility]. It has not been cleared or approved by the U.S. Food and Drug Administration. Gabapentin 0 <225 ng/mL N This test was developed and its performance characteristics determined by [facility]. It has not been cleared or approved by the U.S. Food and Drug Administration. Benzoylecgonine 0.0 <37.5 ng/mL N This maria a t was developed and its performance characteristics determined by [facility]. It has not been cleared or approved by the U.S. Food and Drug Administration. 4-Hydroxy Xylazine 0 <25 ng/mL N This t est was developed and its performance characteristics determined by [facility]. It has not been cleared or approved by the U.S. Food and Drug Administration. Tox Results Reviewed date:01/21/2025 04:09:05 PM Interpretation: Performing Lab: Notes/Report: Reason For Referral Reason eval and treat Diagnosis 1 Chronic pain syndrom e (G89.4) Referred Organization [facility] Referred Provider Mary Ramirez Referred Address [address] [place] [id number], Referred Provider Specialty Pain Medicin e Referral Priority Routine Reason Neuro consult Diagnosis 1 Lumbosacral radiculo yanira (M54.17) Referral Organization [facility] Referring Provider First Name Maria L Referring Provider Last Name Dmitry Referring Provider Speciality Pain Medic ine Referred Provider [facility] Provider Specialty Neurological Surgery Referral Priority Routine Medications Medication SIG (Take, Route, Frequency, Duration) Notes Start Date End Date Status Motrin Active HYDROcodone-Acetamino phen 10-325 MG Tablet 1 tablet Orally every 8 hours; Duration: 30 days As needed Not to exceed 3 per day Fill on 02/15/2025 01/18/2025 03/17/2025 Active Social History Tobacco Use: Social History Observation Description Date Details (start date - stop date) Never Smoker NA - NA Social History Tobacco Use: Social Info Question Answer Notes Tobacco Control (Standard) Tobacco use: Nonsmoker Additional Details Category Social Info Options Details Miscellaneous: Sexually active: no Sexual abuse: no Drugs/Alcohol: Do you smoke marijuana? De nies Do you drink alcohol? No Problems Problem Type SNOMED Code ICD Code Onset Dates Problem Status W/U Status Risk Notes Problem Chronic pain syndrome (504342706) Chronic pain syndrome (G89.4) Active confirmed Problem High risk drug monitoring status (995715291) group home (current) use of opiate analgesic (Z79.891) Active confirmed Problem Lumbosacral spondylosis with radiculopathy (662742664) Lumbosacral spondylosis with radiculopathy (M47.27) Active confirmed Problem Lumbosacral spondylosis without myelopathy (18178473) Spondylosis of lumbosacral region without myelopathy or radiculopathy (M47.817) Active confirmed Problem Cervical spondylosis (027394308) Cervical spondylosis (M47.812) Active confirmed Problem Myalgia (23321163) Myalgia (M79.10) Active confirmed Problem Lumbosacral radiculopathy (9362141) Lumbosacral radiculopathy (M54.17) Active confirmed Problem Meralgia paresthetica (83344383) Meralgia paresthetica of right side (G57.11) Active confirmed Vital Signs Weight-kg 136.08 kg 01/16/2025 Weight 300 lbs 01/16/2025 Encounters Encounter Location Date Provider Diagnosis [facility] [address] [address] 01/16/2025 Maria L Andres Chronic pain syndrome G89.4 ; Lumbosacral spondylosis with radiculopathy M47.27 ; Meralgia paresthetica of right side G57.11 ; group home (current) use of opiate analgesic Z79.891 ; Cervical spondylosis M47.812 and Myalgia M79.10 [facility] [address] [place] [address] 11/15/2024 Maria L Andres Chronic pain syndrome G89.4 ; Lumbosacral spondylosis with radiculopathy M47.27 ; Myalgia M79.10 ; Meralgia paresthetica of right side G57.11 and group home (current) use of opiate analgesic Z79.891 [facility] [address] [address] 10/15/2024 Dione Hinson-Quinton e Chronic pain syndrome G89.4 ; Lumbosacral spondylosis with radiculopathy M47.27 ; Myalgia M79.10 ; Meralgia paresthetica of right side G57.11 ; group home (current) use of opiate analgesic Z79.891 ; Spondylosis of lumbosacral region without myelopathy or radiculopathy M47.817 and Lumbosacral radiculopathy M54.17 [facility] [address] [address] 11/15/2024 Dione Marlow e Lumbosacral radiculopathy M54.17 [facility] [place] [address] [place] [address] 10/29/2024 Dione Hinson-Quinton e [facility] [address] [address] 01/16/2025 Rodríguez Orta Lumbosacral radiculopathy M54.17 Assessments Encounter Date Diagnosis (ICD Code) Assessment Notes Treatment Notes Treatment Clinical Notes Section Notes 10/15/2024 Chronic pain syndrome (ICD-10 - G89.4) Mr. 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 I will provide him a home exercise program and send him physical therapy for his lower back. It is medically necessary to obtain an MRI L spine and X-ray of his L spine to evaluate if he has compression L4-L5 distribution effecting his L4 nerve and see if he would benefit from epidurals at that level. I also discussed doing a right LFCN block with steroid and ultrasound guidance. He would like to defer at this time. He is doing well on his regimen of hydrocodone 10 mg up to three tablets per day. We will continue on this current regimen. PDMP reviewed with no untoward events. Will obtain UDS confirmation for today's visit. The options for treatment were explained in detail, this included PT, medications, injections, lifestyle modifications and exercise. The patient presents to clinic for medication evaluation and management. The patient is stable on their current medication regimen and endorses adequate analgesia, increased ADLs, denies abuse and side effects. The SCREEN ROLLER was reviewed with no untoward events noted. UDS reviewed and is as expected. A bowel regimen was discussed with the patient. We will follow up in 1 month for revaluation. ITiffanie, am scribing for Dr. Rodriguez. I, Dr. Rodriguez, personally performed the services described in this documentation , as scribed by Tiffanie Traore, and it is both accurate and complete. 10/15/2024 Lumbosacral spondylosis with radiculopathy (ICD-10 - M47.27) 11/15/2024 Chronic pain syndrome (ICD-10 - G89.4) I had a nice discussion with the patient today regarding his chronic pain complaints. He continues with lower back pain as well as radicular symptoms and myalgia mediated pain. He did get his MRI and x-rays which I reviewed with him today using spine model. I discussed with him neurosurgical consultation which he would like to proceed with. We will refer him to neurosurgery in [place] per his request. Also discussed interventional procedures but the patient would like to hold off until he speaks with neurosurgery. He feels the medication is providing him with some relief so he will continue that at present level. He denies any changes in his health since we last seen him or any untoward side effects of the medication. I did discuss lifestyle modifications as well as a bowel regimen. He will return to clinic in 2 months to monitor for treatment effectiveness and compliance as well as to hopefully discuss his neurosurgical consultation. The patient continues with chronic pain requiring treatment to help restore function and improve quality of life. Risks of opioid therapy as well as interaction of opioids with alcohol, illicit drugs, muscle relaxers, and other sedative medications are reviewed briefly with patient again today. The patient has trialed all other reasonable treatment options and uses the medication to alleviate pain in order to remain active and rest with less pain. No clinically relevant medication side effects are noted. Last UDS and AR SCREEN ROLLER reviewed today. Patient is advised that best long-term goals include increased activity, core strengthening, proper weight management, coping strategies, avoidance of painful triggers, and targeted interventional therapy. We will see the patient for routine follow up in accordance with all clinic policies. We did remind patient today of current guidelines to decrease opioid when possible. We will continue to stress nonopioid treatment. URINE TESTING TODAY; POINT OF SERVICE Urine drug screening will be performed today to monitor compliance with opioid therapy or to serve as a baseline screen for a patient who may be a candidate for opioid therapy in the future, pending UDS results. We will monitor with in-office testing (rapid testing) today and review the results prior to dispensing prescription, as well. Patient has been made aware of this policy. 11/15/2024 Lumbosacral spondylosis with radiculopathy (ICD-10 - M47.27) 11/15/2024 Lumbosacral radiculopathy (ICD-10 - M54.17) 01/16/2025 Chronic pain syndrome (ICD-10 - G89.4) I had a nice discussion with the patient today regarding his chronic pain complaints. He continues with lower back pain as well as radicular symptoms and myalgia mediated pain. He has not had anything from his neurosurgical referral so we will check on that for him today. He states he has been very busy and forgot about it as well. He reports today that he has been having severe neck pain for the past month at least which does not radiate anywhere.He states he is having trouble doing much of anything due to his neck pain and is unsure of any triggering event. I did discuss physical therapy with him as well as home exercise program which he deferred stating he knows that is not can help this pain. I will order an MRI of the cervical spine but the patient does know that there is a chance they will deny it due to no physical therapy. His medications working reasonably well so we will continue that at present level. He denies any other changes since we last seen him or any untoward side effects of the medication. I did discuss lifestyle modifications as well as a bowel regimen. He will continue his medication at present level and return to clinic in 2 months to monitor for treatment effectiveness and compliance. The patient continues with chronic pain requiring treatment to help restore function and improve quality of life. Risks of opioid therapy as well as interaction of opioids with alcohol, illicit drugs, muscle relaxers, and other sedative medications are reviewed briefly with patient again today. The patient has trialed all other reasonable treatment options and uses the medication to alleviate pain in order to remain active and rest with less pain. No clinically relevant medication side effects are noted. Last UDS and AR SCREEN ROLLER reviewed today. Patient is advised that best long-term goals include increased activity, core strengthening, proper weight management, coping strategies, avoidance of painful triggers, and targeted interventional therapy. We will see the patient for routine follow up in accordance with all clinic policies. We did remind patient today of current guidelines to decrease opioid when possible. We will continue to stress nonopioid treatment. RECOMMEND URINE TESTING TODAY Urine drug screening will be performed today to monitor compliance with opioid therapy or to serve as a baseline screen for a patient who may be a candidate for opioid therapy in the future, pending UDS results. We will monitor with in-office testing (rapid testing) today and review the results prior to dispensing prescription. All positive results will be sent for quantitative analysis to ensure accuracy and quantify amounts. Any expected positive results that return negative will also be sent for quantitative analysis. Any questionable read or any medication we cannot test for in the office confidently will be sent for quantitative analysis, as well. Patient has been made aware of this policy and agrees to abide by our urine testing policy. 01/16/2025 Lumbosacral spondylosis with radiculopathy (ICD-10 - M47.27) 01/16/2025 Lumbosacral radiculopathy (ICD-10 - M54.17) 01/16/2025 Meralgia paresthetica of right side (ICD-10 - G57.11) 11/15/2024 Myalgia (ICD-10 - M79.10) 10/15/2024 Myalgia (ICD-10 - M79.10) 11/15/2024 Meralgia paresthetica of right side (ICD-10 - G57.11) 01/16/2025 [employer] (current) use of opiate analgesic (ICD-10 - Z79.891) 10/15/2024 Meralgia paresthetica of right side (ICD-10 - G57.11) 01/16/2025 Cervical spondylosis (ICD-10 - M47.812) 11/15/2024 group home (current) use of opiate analgesic (ICD-10 - Z79.891) 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 We will monitor with in-office testing (rapid testing) today and review the results prior to dispensing prescription. All positive results will be sent for quantitative analysis to ensure accuracy and quantify amounts. Any expected positive results that return negative will also be sent for quantitative analysis. Any questionable read or any medication we cannot test for in the office confidently will be sent for quantitative analysis, as well. Patient has been made aware of this policy and agrees to abide by our urine testing policy. 10/15/2024 Spondylosis of lumbosacral region without myelopathy or radiculopathy (ICD-10 - M47.817) 01/16/2025 Myalgia (ICD-10 - M79.10) 10/15/2024 Lumbosacral radiculopathy (ICD-10 - M54.17) 10/15/2024 Other Pt lives in [facility]. It is quite a distance for PT. Dr. Rodriguez approved HEP with log. Given and explained to pt. Plan Of Treatment Pending Test Test Name Order Date Lumbosacral Spine Comp w/ Bending-[id number] 10/15/2024 MRI Cervical Spine w/o Cont-[id number] 2024 MRI Lumbar Spine w/o Cont-[id number] 10/16/19 Next Appt Details Provider Name:[facility], 03/11/2025 03:00:00 PM, [address] [place], [address], Insurance Providers Payer Name Payer Address Payer Phone Subscriber Number Group Number Insured Name Patient Relationship to Insured Coverage Start Date Coverage End Date [employer] [place] Medicaid Replacement [address] [address] [place] [address] [id number] Skip Mccray Self - patient is the insured [place] Medicaid [address] [place] [address] [id number] Skip Mccray Self - patient is the insured Medical (General) History Medical History History ICD Code kidney infection sepsis Surgical History Surgery Date(Month/Year) appendectomy bicep surgery
--- OUTSIDE RECORDS SUMMARY | 2025-02-19 11:42 | XMS_ITS | Clinical Summary ---
Author Organization [facility] Address [address] [place] [address] Phone Care Team Providers Care Telephone Clerk Name Role Phone Unavailable Primary Care Provider Unavailabl e Social History Tobacco Use Types Packs/Day Years Used Date Smoking Tobacco: Never Assessed Sex and Gender Information Value Date Recorded Sex Assigned at Not on file Legal Sex Male 8:36 AM [employer]PTILE F[employer] Gender Identity Not on file Sexual Orientation [...] of 2) 07/09/2017 INFLUENZA VACCINE (#1) 2024 Insurance [employer] [place] [employer]
[2025-02-19 12:27] LABS: Glucose Urine UA Negative (Normal); Nitrate Urine Negative (Negative); Specific Gravity, Urine 1.018 (1.005-1.030)
[2025-02-19 12:29] LABS: Add Urine Microscopic? YES
[2025-02-19 12:36] LABS: Hematocrit 45.9 % (37-53); Hemoglobin 14.90 g/dL (11.27-16.99); Mean Corpuscular HGB Conc 32.5 g/dL (30-55); Mean Corpuscular Hemoglobin 28.8 pg (27-33); Mean Corpuscular Volume 88.6 fl (82-101); Nucleated Red Blood Cells % 0 %; Platelet Count 285 10^3/cmm (157-399); Red Blood Count 5.18 10^6/uL (3.85-5.65); White Blood Count 10.13 10^3/uL (3.29-11.43)
--- NOTE | 2025-02-19 12:43 | CT_ITS ---
WS: [id number] CT ABDOMEN AND PELVIS WITH CONTRAST HISTORY: right upper back pain, nausea, hx of urosepsis TECHNIQUE: Imaging performed of the abdomen and pelvis with IV contrast. Single phase imaging of the abdomen. Coronal and sagittal reformats are submitted. All CT scans at [facility] use at least one of these dose optimization techniques: automated exposure control; mA and/or kV adjustment per patient size (includes targeted exams where dose is matched to clinical indication); or iterative reconstruction. IV CONTRAST: Omnipaque 350; 100 mL IV. Oral contrast: Yes. DLP: 1262.03 mGy.cm COMPARISON: 09/08/2024 Lower thorax: Lung bases are clear. Heart is normal size. No hiatal hernia. Liver/biliary system: Normal size with no intrahepatic dilatation. Gallbladder: Normal. No gallstones or wall thickening. No pericholecystic fluid. Pancreas: Normal size pancreas and pancreatic duct. No adjacent inflammation. Spleen: Normal size spleen. No mass or infarct. Adrenal glands: Normal. Right kidney: Normal. Left kidney: Normal. Aorta: Mild atherosclerosis with no aneurysm. Lymphadenopathy: None. Free fluid: None. GI tract: Nondistended stomach. No small bowel obstruction. Prior appendectomy. No obstruction of the colon. There are a few scattered diverticula without acute diverticulitis. Abdominal wall: Mild diastases rectus. Pelvis: Prostate gland is enlarged encroaching into the urinary bladder. No free fluid or adenopathy. Bones: Degenerative disc disease and vacuum disc phenomenon at L2-3, L3-4 and L4-5. No fractures. CT/CT abdomen pelvis w con* [id number] IMPRESSION: 1. No renal obstruction or pyelonephritis. 2. Prior appendectomy. 3. No free fluid or adenopathy. 4. No GI tract obstruction. Mild diverticulosis without acute diverticulitis.
--- NOTE | 2025-02-19 12:54 | W.ED.MALEGU ---
HPI - Male Genitourinary General: Chief complaint: Urogenital-Male Stated complaint: right side lower back pain Time Seen by Provider: 02/19/25 12:16 Source: patient Mode of arrival: ambulatory Limitations: no limitations History of Present Illness: Patient is a 59-year-old male who reports to me a past medical history of previous urosepsis who presents emergency department complaining of right upper back pain beginning yesterday. States that this pain was similar to when he was diagnosed with a urosepsis, states that he was hospitalized at that time and tells me he nearly . He notes that last time he waited for the pain to get worse before he got evaluated, he is here prophylactically to make sure that he does not have any abnormalities with his lab work. He does note some burning with his urination and mild hematuria at the termination of his stream. However no urinary hesitancy or symptoms of obstruction. He is not endorsing any fevers or chills, no nausea or vomiting at this time. He does state that the pain is worse with movement at the back, and it does not radiate. Denies any recent strenuous activity that he can recall. His vitals are stable at this time, he is afebrile. He does have a history of chronic pain syndrome and chronically takes [place]. Complaint: other (right upper back pain) Onset (ago): day(s) (1) Duration: constant Associated symptoms: Deny dysuria, nausea or vomiting Related Data Home Medications ?Medication ?Instructions ?Recorded ?Confirmed cholecalciferol (vitamin D3) 125 125 mcg PO DAILY 08/26/24 11/05/24 mcg (5,000 unit) tablet (Vitamin D3) coenzyme Q10 400 mg capsule (Co 400 mg PO DAILY 08/26/24 11/05/24 Q-10) garlic 1,000 mg capsule 1,000 mg PO DAILY 08/26/24 11/05/24 soybean, fermented 50 mg capsule 50 mg PO DAILY 08/26/24 11/05/24 (Nattokinase) aspirin 325 mg tablet (Dustin 1,270 mg PO BID PRN Fever Or Pain 09/09/24 11/05/24 Aspirin) ibuprofen 200 mg tablet (Advil) 800 mg PO Q6H PRN Fever Or Pain 09/09/24 11/05/24 Previous Rx's ?Medication ?Instructions ?Recorded hydrocodone 10 mg-acetaminophen 1 tab PO Q4H PRN pain 7 days #42 09/02/24 325 mg tablet tabs testosterone 2 pump topical DAILY #75 grams 11/13/24 methocarbamol 750 mg tablet 750 mg PO Q8H 5 days #15 tabs 02/19/25 Allergies Allergy/AdvReac Type Severity Reaction Status Date / Time Sulfa (Sulfonamide Allergy Severe anaphylacti Verified 02/19/25 11:43 Antibiotics) c Review of Systems General: Reports: 10 or more systems reviewed and unremarkable except in HPI and below Const: Denies: fever(s), chills, change in appetite, change in weight or diaphoresis ENMT: Denies: throat pain or hoarseness Card: Denies: chest pain, palpitations or lightheadedness Resp: Denies: dyspnea, productive cough or wheezing GI: Denies: abdominal pain, nausea, vomiting, diarrhea, constipation, bloating, change in stool character or hematochezia : Denies: flank pain, difficulty urinating, dysuria, urinary frequency, urinary urgency or testicular pain Musc: Reports: back pain; Denies: neck pain Skin/Breast: Denies: rash or new lesions Neuro: Denies: headache(s) or dizziness PFSH ED PFSH: Medical History Degenerative disc disease Opioid dependence Chronic pain syndrome Nonalcoholic fatty liver disease Family History Other Adopted Denies family history of Bleeding disorder Social History Smoking and tobacco/nicotine status: current every day tobacco/nicotine user cigarettes and smokeless tobacco Second hand smoke exposure: No Alcohol intake: current Alcohol intake frequency: holidays/special occasions only Alcohol type: beer Substance/Drug Use: never Physical Exam Const: COMMON NORMALS: patient oriented x3, no limitations, alert and well nourished GENERAL APPEARANCE: cooperative and comfortable NUTRITIONAL APPEARANCE: obese ORIENTATION/CONSCIOUSNESS: Yes awake OTHER: nontoxic appearing Neck/C-Spine: COMMON NORMALS: full ROM, supple and no meningeal signs Resp: COMMON NORMALS: normal respiratory effort, No retractions, No use of accessory muscles and clear to auscultation bilaterally AUSCULTATION: clear to auscultation bilaterally, no crackles, no rales, no rhonchi and no wheezes Cardio: COMMON NORMALS: regular rate, regular rhythm, No gallops present (Cardio), No clicks present (Cardio), No murmurs present (Cardio) and No rub (Cardio) RATE: regular rate RHYTHM: regular rhythm GI: COMMON NORMALS: Soft to palpation and non-tender INSPECTION: Yes central obesity PALPATION: Yes Soft to palpation RECTAL EXAM: Yes deferred Back/Pelvis: OTHER: Reproducible tenderness to palpation diffusely to the right parathoracic muscles, negative CVA strike tenderness. He has pain with range of motion of the mid upper back. Extremity: COMMON NORMALS: normal to inspection and full ROM Neuro: COMMON NORMALS: patient oriented x3, moves all extremities, no focal motor deficits and no sensory deficits noted SENSORIUM/ORIENTATION: Yes alert MENINGEAL SIGNS: Yes no meningeal signs Psych: COMMON NORMALS: mental status grossly normal, cooperative and speech normal SPEECH: Yes normal speech Skin: COMMON NORMALS: no rashes or lesions noted GENERAL SKIN EXAM: no rashes or lesions noted Course Vital Signs: Vital signs: Vital Signs Temperature 97.8 F 02/19/25 11:36 Pulse Rate 82 02/19/25 13:00 Respiratory Rate 17 02/19/25 13:00 Blood Pressure 134/91 02/19/25 13:00 Pulse Oximetry 95 02/19/25 13:00 Oxygen Delivery Me thod Room Air 02/19/25 13:00 MDM - Male Medical Decision Making Patient presented for evaluation of right upper back pain, stating that he was having pain in his kidney and reported to me a history of urosepsis, which he specifically expressed concern of. He is nontoxic-appearing on exam, morbidly obese male with tender to palpation to the parathoracic muscles but negative CVA strike tenderness. No fevers, no other symptoms other than the pain. Urinalysis obtained shows no signs of infection. CBC and CMP unremarkable, his kidney function is normal. His lactic acid is also normal. Blood cultures have been ordered preemptively. Abdominal pelvis CT shows no acute abdominal process. This is very likely musculoskeletal back pain, chronically he is on [place] for chronic pain, he will use Motrin as adjunct and do Robaxin for any muscle spasms. Overall stable for discharge home will follow-up primary care routinely and return with any fevers, nausea/vomiting, worsening pain, or any other concerns that he has. Lab Data 02/19/25 12:22 02/19/25 12:22 Radiology Impressions Abdomen/Pelvis CT 02/19/25 12:43 IMPRESSION: 1. No renal obstruction or pyelonephritis. 2. Prior appendectomy. 3. No free fluid or adenopathy. 4. No GI tract obstruction. Mild diverticulosis without acute diverticulitis. Laboratory Results WBC 10.13 10^3/uL (3.29-11.43) 02/19/25 12:22 RBC 5.18 10^6/uL (3.85-5.65) 02/19/25 12:22 Hgb 14.90 g/dL (11.27-16.99) 02/19/25 12:22 Hct 45.9 % (37-53) 02/19/25 12:22 MCV 88.6 fl (82-101) 02/19/25 12:22 MCH 28.8 pg (27-33) 02/19/25 12:22 MCHC 32.5 g/dL (30-55) 02/19/25 12:22 RDW 13.2 % (12.1-15.1) 02/19/25 12:22 Plt Count 285 10^3/cmm (157-399) 02/19/25 12:22 MPV 9.1 fL (7.4-10.4) 02/19/25 12:22 Neut % (Auto) 67.0 % 02/19/25 12:22 Lymph % (Auto) 25.0 % 02/19/25 12:22 [place] % (Auto) 6.0 % 02/19/25 12:22 Eos % (Auto) 1.2 % 02/19/25 12:22 Baso % (Auto) 0.4 % 02/19/25 12:22 Neut # (Auto) 6.79 10^3/uL (1.8-7.7) 02/19/25 12:22 Lymph # (Auto) 2.5 10^3/uL (0.8-4.8) 02/19/25 12:22 [place] # (Auto) 0.6 10^3/uL (0.2-0.9) 02/19/25 12:22 Eos # (Auto) 0.1 10^3/uL (0.0-0.8) 02/19/25 12:22 Baso # (Auto) 0.0 10^3/uL (0.0-0.1) 02/19/25 12:22 Nucleated RBC % (auto) 0 % 02/19/25 12:22 Nucleated RBCs # 0.0 /100WBC 02/19/25 12:22 Sodium 139 mmol/L (136-145) 02/19/25 12:22 Potassium 4.2 mmol/L (3.5-5.1) 02/19/25 12:22 Chloride 102 mmol/L (98-107) 02/19/25 12:22 Carbon Dioxide 24 mmol/L (22-29) 02/19/25 12:22 Anion Gap 17.2 (5-19) 02/19/25 12:22 BUN 9 mg/dL (6-20) 02/19/25 12:22 Creatinine 0.7 mg/dL (0.7-1.2) 02/19/25 12:22 GFR Calculation 116.2 mL/min (90-130) 02/19/25 12:22 Glucose 97 mg/dL (65-115) 02/19/25 12:22 Calculated Osmolality 287 mOsm/kg (285-295) 02/19/25 12:22 Lactic Acid 1.0 mmol/L (0.5-2.2) 02/19/25 12:22 Calcium 9.4 mg/dL (8.5-10.5) 02/19/25 12:22 Total Bilirubin 0.8 mg/dL (0.15-1.2) 02/19/25 12:22 AST 16 U/L (0-40) 02/19/25 12:22 ALT 20 U/L (0-41) 02/19/25 12:22 Alkaline Phosphatase 43 U/L (40-130) 02/19/25 12:22 Total Protein 8.4 g/dL (6.6-8.7) 02/19/25 12:22 Albumin 4.2 g/dL (3.5-5.2) 02/19/25 12:22 Globulin 4.2 g/dL (1.3-4.6) 02/19/25 12:22 Urine Color Yellow (Yellow) 02/19/25 12:10 Urine Appearance Clear (CLEAR) 02/19/25 12:10 Urine pH 5.5 (5-7) 02/19/25 12:10 Ur Specific [place] 1.018 (1.005-1.030) 02/19/25 12:10 Urine Protein Negative (Negative) 02/19/25 12:10 Urine Glucose (UA) Negative (Normal) 02/19/25 12:10 Urine Ketones Negative (Negative) 02/19/25 12:10 Urine Blood Negative (Negative) 02/19/25 12:10 Urine Nitrate Negative (Negative) 02/19/25 12:10 Urine Bilirubin Negative (Negative) 02/19/25 12:10 Urine Urobilinogen 1.0 mg/dL (Negative) 02/19/25 12:10 Ur Leukocyte Esterase Negative (Negative) 02/19/25 12:10 Urine RBC 0-2 /hpf (0-2) 02/19/25 12:10 Urine WBC 0-5 /hpf (0-5) 02/19/25 12:10 Ur Squamous Epith Cells 0-5 /hpf (0-5) 02/19/25 12:10 Amorphous Sediment Not Reportable 02/19/25 12:10 Urine Bacteria None seen /hpf (NONE) 02/19/25 12:10 Hyaline Casts 0-4 /lpf H 02/19/25 12:10 All radiology interpretation(s) finalized by discharge Discharge Plan Discharge Patient Disposition: Home Clinical Impression: Musculoskeletal back pain Condition: Stable Prescriptions: New methocarbamol 750 mg tablet 750 mg PO Q8H 5 Days Qty: 15 0RF No Action hydrocodone-acetaminophen 10-325 mg tablet 1 tab PO Q4H MDD 6 PRN (Reason: pain) 7 Days Qty: 42 0RF testosterone 20.25 mg/1.25 gram (1.62 %) gel in metered-dose pump 2 pump topical DAILY Qty: 75 5RF Rx Instructions: apply 2 pumps amount over max area of ONE upper arm and shoulder aspirin [Dustin Aspirin] 325 mg Tablet 1,270 mg PO BID PRN (Reason: Fever Or Pain) ibuprofen [Advil] 200 mg Tablet 800 mg PO Q6H PRN (Reason: Fever Or Pain) garlic 1,000 mg Capsule 1,000 mg PO DAILY cholecalciferol (vitamin D3) [Vitamin D3] 125 mcg (5,000 unit) Tablet 125 mcg PO DAILY Nattokinase 50 mg Capsule 50 mg PO DAILY coenzyme Q10 [Co Q-10] 400 mg Capsule 400 mg PO DAILY Discharge Orders: Discharge ED (Routine); Ordered 02/19/25 Ordered By: Marco Ortiz Referrals: Lyubov Diaz MD [Primary Care Provider, Family Practice] Patient Instructions: Patient Portal & Isabell Instructions Activity Restrictions/Additional Instructions: Discharge Instructions: Musculoskeletal Back Pain Your Diagnosis You were evaluated today for back pain. After a thorough evaluation including blood work, urine testing, and a CT scan of your abdomen and pelvis, we found no evidence of infection or other serious medical problems. Your symptoms are due to musculoskeletal back pain, which means the pain is coming from your muscles, ligaments, or joints in your back. What to Expect Most people with musculoskeletal back pain improve significantly within the first few weeks. While you may have some discomfort for a period of time, this condition typically has a favorable course with appropriate treatment and self-care. Your Medications Continue taking your medications as prescribed: - [place] (hydrocodone): Continue as you have been taking it - Motrin (ibuprofen): Take as directed to help reduce pain and inflammation. Take with food to protect your stomach - Robaxin (methocarbamol): Take as prescribed for muscle spasms. Important Medication Warnings - Do not drink alcohol while taking these medications, as this can increase drowsiness and other side effects - Do not drive or operate machinery until you know how these medications affect you, as they may cause drowsiness or dizziness - Avoid combining these medications with other sedating drugs unless directed by your doctor - Be aware that ibuprofen can cause stomach upset, so take it with food What You Should Do at Home - Stay active: Continue your normal daily activities as much as you can tolerate. Bed rest is not recommended and may actually slow your recovery - Apply heat: Use a heating pad or warm compress on your back for 20 minutes several times daily to help relieve pain and improve mobility - Gentle movement: Light stretching and walking can help your recovery - Avoid heavy lifting or strenuous activities until your pain improves When to Seek Medical Attention Return to the emergency department or call your doctor immediately if you develop: - Fever (temperature over 100.4?F or 38?C) - New weakness or numbness in your legs - Loss of bowel or bladder control - Severe pain that is not controlled by your medications - Pain that spreads down your legs - Any signs of infection such as burning with urination, frequent urination, or cloudy/bloody urine Follow-Up Care - Follow up with your primary care doctor within 1-2 weeks - If your pain is not improving after a few weeks, you may benefit from physical therapy or other treatments - Contact your doctor if you have any questions or concerns about your recovery Remember: Your testing today showed no signs of kidney infection or other serious problems. Your back pain is musculoskeletal and should improve with time, activity modification, and the medications prescribed. Print Language: Kenyan Coding Level of Care Code ED Physical Education Department Chair for Amie Barbosa
[2025-02-19 12:55] LABS: Alanine Aminotransferase 20 U/L (0-41); Albumin Level 4.2 g/dL (3.5-5.2); Alkaline Phosphatase 43 U/L (40-130); Anion Gap 17.2 (5-19); Aspartate Amino Transferase 16 U/L (0-40); Blood Urea Nitrogen 9 mg/dL (6-20); Calcium 9.4 mg/dL (8.5-10.5); Carbon Dioxide 24 mmol/L (22-29); Chloride 102 mmol/L (98-107); Globulin 4.2 g/dL (1.3-4.6); Glucose 97 mg/dL (65-115); Osmolality Calculated 287 mOsm/kg (285-295); Potassium 4.2 mmol/L (3.5-5.1); Sodium 139 mmol/L (136-145); Total Protein 8.4 g/dL (6.6-8.7)
[2025-02-19 13:00] VITALS: BP 134/91; PULSE 82; RESP 17; O2SAT 95; O2SAT 97
[2025-02-19] MEDS: morphine 4 mg/mL SDV 1 mL IVP (13:00)
[2025-02-19 13:13] LABS: Lactic Sepsis W/Reflex 1.0 mmol/L (0.5-2.2)
[2025-02-19] MEDS: iohexol 350 mg/mL 500 mL Btl (per mL) IV (13:14)
[2025-02-19 14:05] VITALS: BP 146/92; PULSE 79; O2SAT 94
== END 2025-02-19 14:08 | disposition home or self-care (01) ==
PROVIDERS: Emergency Provider Physician Assistant; PCP Family Medicine
DX: M54.89 Other dorsalgia (principal); Z79.82 Long term (current) use of aspirin; F17.290 Nicotine dependence, other tobacco product, uncomplicated
CPT/HCPCS: 36415; 74177; 80053; 81001; 83605; 85025; 87040; 96374; 99285; J2270